=== PATIENT | female | born 1965 | race African-American/Black ===

== ENCOUNTER 2016-06-24 19:49 | Inpatient (IN) | payer MEDICAID ==
[~2016-06-24] VITALS: Ht 172.7 cm; Wt 110.7 kg
[~2016-06-24 19:49] MED LIST: BACO TOP; CLEOCIN HCL300 MG PO; COLACE100 MG PO; FERROUS SULFAT325 M2 PO; FERROUS SULFATE27 MG PO; HIBICLENS118 ML TOP; LAC PO; LEVAQUIN750 MG PO; LOTENSIN10 MG PO; NOR10T PO; PER5 PO; ULT50 PO; VICODIN1 TA1 PO; VITAMIN B121000 MCG PO; ZOS3PM IV
[2016-06-24 21:24] LABS: BASOPHIL % 0.6 % (0-2)
[2016-06-24 21:27] LABS: PLATELET COUNT 622 x10^3mcL (130-400); RED CELL DISTRIBUTION WIDTH 22.7 % (11.5-14.5)
--- NOTE | 2016-06-24 21:27 | NUR ---
XRAY AT BEDSIDE. ATTEMPTED IV UNSUCCESSFUL
[2016-06-24 21:30] LABS: CALCIUM 8.6 mg/dL (8.5-10.1); CARBON DIOXIDE 25.3 mmol/L (21-32); CHLORIDE SERUM 101 mmol/L (98-107); CREATININE SERUM 0.5 mg/dL (0.6-1.0); GFR1 > 60 mL/min; GLUCOSE SERUM 108 mg/dL (74-106); POTASSIUM SERUM 3.5 mmol/L (3.5-5.1); SODIUM SERUM 136 mmol/L (136-145)
[2016-06-24 21:34] LABS: ALKALINE PHOSPHATASE 164 U/L (46-116); ALT/SGPT 58 U/L (14-59); AST/SGOT 67 U/L (15-37); BILIRUBIN TOTAL 0.51 mg/dL (0.20-1.00)
[2016-06-24 21:36] LABS: ALBUMIN 2.8 g/dL (3.4-5.0); TOTAL PROTEIN, SERUM 9.6 g/dL (6.4-8.2)
[2016-06-24 21:45] LABS: CK-MB 2.8 ng/mL (0-3.6)
--- NOTE | 2016-06-24 21:55 | NUR ---
RECEIVED A 50 YEAR OLD FEMALE IN ROOM 15 [facility] WITH C/O BILATERAL LEG PAIN. PER PASSEMENTERIE WORKER, PT IS HOMELESS AND IS WHEELCHAIR BOUND. PT WAS SEEN [place] [facility] [place] ULCERS A 1WEEK AGO. PT AAOX4, RESPIRATORY EVEN AND UNLABORED. MULTIPLE WOUND ULCERS NOTED TO LOWER EXTREMITIES.
[2016-06-24] MEDS ORDERED: MYCOC TOP (23:00)
[2016-06-24] MEDS ORDERED: PANTOPRAZOLE SO40 M1 PO (23:00)
--- NOTE | 2016-06-24 23:10 | NUR ---
RECEIVED REPORT FROM ER NURSE.
--- NOTE | 2016-06-24 23:11 | NUR ---
REPORT GIVEN TO PEDRO ISRAEL TO ASSUME CARE.
--- NOTE | 2016-06-24 23:38 | NUR ---
PT TRANSPORTED TO [facility] VIA [facility] ON CM BY RIAN RN AND GONZALO EMT. PT IN NAD
[2016-06-25] VITALS (7 sets, daily range): BP systolic 113–142; BP diastolic 65–81
[2016-06-25 00:06] LABS: FREE T4 1.51 ng/dL (0.76-1.46); T4(THYROXINE) 8.1 ug/dL (4.7-13.3)
[2016-06-25 00:15] LABS: CHOLESTEROL/HDL RATIO 1.7
--- NOTE | 2016-06-25 00:40 | NUR ---
REC'D AOX4, SPEECH CLEAR. DENIES VILLALOBOS AND DIZZINES. STATES DRANK ALCOHOL YESTERDAY. PLACED ON SZ PRECAUTIONS. ATTACHED TELE 29. NSR, DENIES CHEST PAIN. NOTED WEAK PEDAL PULSES AND SWELLING TO BLE. ON RA, NO SOB NOTED. NOTED MULTIPLE WOUNDS AND ULCERATIONS TO BLE AND BUTTOCKS AND LEFT TOE SKIN TEAR. DR. TEE IN TO SEE PT. REC'D ORDER TO USE THERAHONEY. PHOTOS DOCUMENTED. APPLY DRESSINGS. PLACED PT ON AIR MATTRESS. IV ON LAC WNL. PLACED ON CONTACT PRECAUTIONS. ORIENTED PT TO ROOM AND SURROUNDINGS. CALL LIGHT WITHIN REACH, PROVIDED REPORT TO PEDRO ISRAEL.
--- NOTE | 2016-06-25 00:45 | NUR ---
MOLINA CATH INSERTED ORDERED. COLLECTED URINE FOR LAB.
[2016-06-25 00:53] LABS: T3 TOTAL 0.91 ng/mL
[2016-06-25 01:19] LABS: microscopic required? NO
[2016-06-25 01:32] LABS: UA SPECIFIC GRAVITY 1.025 (1.005-1.035); urine erythrocyte NEGATIVE (NEGATIVE)
[2016-06-25 01:38] LABS: AMPHETAMINE QUAL UR NONE DETECTED (NEG <=1000)
--- NOTE | 2016-06-25 03:10 | NUR ---
PT IS SLEEPING RIGHT NOW. RESP IS WNL, ON ROOM AIR. NO DISTRESS NOTED. IVF IS INFUSING WELL . WILL CONTINUE TO MONITOR.
[2016-06-25 06:11] LABS: BASOPHIL % 0.3 % (0-2)
[2016-06-25 06:27] LABS: CALCIUM 8.1 mg/dL (8.5-10.1); CARBON DIOXIDE 26.4 mmol/L (21-32); CHLORIDE SERUM 106 mmol/L (98-107); CREATININE SERUM 0.5 mg/dL (0.6-1.0); GFR1 > 60 mL/min; GLUCOSE SERUM 83 mg/dL (74-106); MAGNESIUM 1.3 mg/dL (1.8-2.4); PHOSPHOROUS 4.4 mg/dL (2.5-4.9); POTASSIUM SERUM 3.8 mmol/L (3.5-5.1); SODIUM SERUM 141 mmol/L (136-145)
[2016-06-25 06:30] LABS: ALBUMIN 2.2 g/dL (3.4-5.0)
--- NOTE | 2016-06-25 06:50 | NUR ---
WOUND CULTURE COLLECTED AND WILL SEND DOWN TO LAB.
[2016-06-25 06:54] LABS: PLATELET COUNT 454 x10^3mcL (130-400); RED CELL DISTRIBUTION WIDTH 22.4 % (11.5-14.5)
--- NOTE | 2016-06-25 07:40 | NUR ---
\RECEIEVED Pt. AAOX4. RESPIRATIONS EVEN AND UNLABORED. DENIES PAIN/DISCOMFORT AT THIS TIME, MORPHINE IVP GIVEN BY NIGHT RN. Pt. WITH ELEVATED TEMPERATURE TYLENOL GIVEN BY NIGHT RN. WILL CONTINUE TO MONITOR Pt. TELE 29 RETURNED BY NIGHT RN, Pt. DENIES CHEST PAIN/PRESSURE. SLIGHT SWELLING NOTED TO IV AT LEFT AC. BLE WITH FLAKY SKIN, BILATERAL UPPER THIGH WITH DSG CDI. MOLINA CATHETER PEDRO URINE NOTED. AIR MATTRESS IN PLACE, Pt. ON CONTACT PRECAUTIONS. WILL CONTINUE TO MONITOR. CALL LIGHT IN REACH. BED LOW/LOCKED.
--- NOTE | 2016-06-25 07:40 | NUR ---
GAVE PT TYELONOL 650 MG PO FOR ELEVATED TEMP AT 101.2 AND COOLING MEASURES IN PLACE. PT ALSO C/O PAIN TO HER LEGS AND GAVE PT MORPHINE 2 MG IVP. PT IS ALERT AND VERBALLY RESPONSIVE. RESP IS WNL ON ROOM AIR. NOT IN ANY DISTRESS. WILL ENDORSE TO MORNING NURSE.
--- NOTE | 2016-06-25 07:45 | NUR ---
SLIGHT SWELLING NOTED AT LEFT AC IV. REMOVED WITH CATH INTACT. NEW IV LINE STARTED AT RFA 20 G X1 ATTEMPT, GOOD BLOOD RETURN AND Pt. TOLERATED PROCEDURE WELL, RESUMED NS AT 130 ML/HR.
--- NOTE | 2016-06-25 11:28 | NUR ---
Initial Nutrition Assessment Dx: Venous Stasis Ulcers bilateral Lower Extremities 2/2 Peripheral Vascular Disease; Bilateral Decubitus Ulcers stage on thigh PMHx: B/L chronic venous stasis w/ ulcerative lesions, HTN, alcoholism, PAD PSHx: C section 1991, 1993, Right ankle surgery 2009 Labs: BG 83, Cr 0.5L, Alb 2.2L, AST 67H, ALP 164H, Mg 1.3L, Ammonia 43H, A1C 4.9, WBC 4L, H/H 9.29L Meds: ativan, cephulac, colace, ferrous sulfate, lactinex, magnesium sulfate, morphine, vitamin B-12, zofran Current Diet Order: Cardiac (06/25) PO Intakes: 100% B (06/25) Ht: 172.72cm,68". Wt: 244lbs, 110.73kg. BMI: 37.1 kg/m2 (Obese Class II) IBW: 140lb, 63.6kg. %IBW: 159%. UBW: 257lbs (as per previous RD note on 05/26/16) Age: 50 Y/O F Food Allergies: NKFA Skin: multiple wounds and lacerations to BLE and buttocks, skin tear on L toe. Inder:14 Edema: None noted GI: bowel sounds active. Last BM:1 formed (06/25) Pt admitted w/ Venous Stasis Ulcers bilateral Lower Extremities 2/2 Peripheral Vascular Disease; Bilateral Decubitus Ulcers stage on thigh, seen at bedside w/ no family present, is on contact isolation for h/o MRSA, pt reports eating 100% of breakfast today, denies GI issues, only eats 1-2 meals per day d/t being homeless,is very happy to be in the hospital where she can get food, the RD reviewed w/ pt on heart healthy diet and increased protein needs for pressure injury healing at bedside, educational handouts declined, the pt was moderately receptive and engaged. This pt is well known to the [facility] staff, she has been re-admitted to the hospital several times for impaired skin integrity or cellulitis. Problem with: N: None. V: None. D: none. C: None. Problem with: Chewing: None. Swallowing: None. Current Appetite: Good Recent Weight Change: 13lbs. % Weight Change: 5 (Significant) Vitamin/Supplement Use: none Diet at Home: 1-2 meals, is homeless and eats whenever she gets food Physical Activity: none Education: none Estimated Nutritional Needs Based on IBW 140 lb, 63.6kg Energy: 9027-4252 kcal/day (30-35 kcal/kg for Pressure Injury Healing) Protein: 76-95g/day (1.2-1.5 g/kg for Pressure Injury Healing) Fluid: 9263-7752 ml/day (30-35 ml/kg for Pressure Injury Healing) or per MD Nutrition Diagnosis 1. Increased protein/energy needs related to impaired skin integrity as evidenced by pt w/ multiple wounds and lacerations to BLE and buttocks, skin tear on L toe 2. Poor nutrition QOL related to food insecurity 2/2 being homeless as evidenced by pt's self-report and H+P; 13lbs wt loss in 1 month, and % Weight Change: 5 Intervention 1. Cardiac diet w/ 80g protein. Max encouragement and make food prefernces known. 2. Theragran daily, Vitamin C 500mg BID, Zinc Sulfate 220mg daily for 2-4 weeks for pressure injury healing Monitor/Evaluate Goal: PO intakes to meet >/=75% of estimated needs Monitor: PO intakes/tolerance, labs, skin integrity, GI function, wt F/U in 7 days as LOW risk (07/02)
--- NOTE | 2016-06-25 13:34 | NUR ---
Pt. C/O BLE PAIN 8/10 SCALE, MORHINE IVP GIVEN.
--- NOTE | 2016-06-25 15:30 | NUR ---
Pt. APPEARS ASLEEP. NO SIGNS OF PAIN OR DISCOMFORT POST MORPHINE.
--- NOTE | 2016-06-25 18:08 | NUR ---
Pt. TEMPERATURE 100.7. TYELNOL GIVEN, COOLING MEASURES IN PLACE.
--- NOTE | 2016-06-25 18:15 | NUR ---
Pt. REMAINS AAOX4, RESPIRATIONS EVEN AND UNLABORED. DENIES PAIN/DISCOMFORT AT THIS TIME. NO DISTRESS NOTED. NS AT 130 ML/HR TO IV AT RIGHT FOREARM PATENT AND INTACT. BILATERAL UPPER THIGH AND RIGHT HEEL WITH DSG CDI. AIR MATTRESS IN PLACE. OBSERVED CONTACT PRECAUTIONS. BED LOW/LOCKED. CALL LIGHT IN REACH.
--- NOTE | 2016-06-25 19:50 | NUR ---
RECEIVED REPORT FROM DAY SHIFT RN. PT RESTING IN SEMI BLANK'S POSITION. IV ON RFA, NS INFUSING. MOLINA CATHETER IN PLACE, DRAINING PEDRO COLOR URINE. C/O BLE PAIN, WILL MEDICATE. INSTRUCTED PT TO CALL IF ASSISTANCE IS NEEDED. CALL LIGHT WITHIN REACH.
[2016-06-26 05:53] VITALS: BP 142/84
--- NOTE | 2016-06-26 07:05 | NUR ---
PT SLEPT AT LONG INTERVALS. C/O BLE PAIN X2, MEDICATED WITH MORPHINE. SAFETY MEASURES MAINTAINED. CALL LIGHT WITHIN REACH. ALL NEEDS ATTENDED TO. WILL ENDORSE CARE TO ONCOMING RN.
--- NOTE | 2016-06-26 08:00 | NUR ---
PATIENT DROWSY BUT ARROUSABLE, AOX4, C/O HEADACHE WILL MEDICATE. SZ/ETOH PREC. NO TELE, DENIES CP. LUNGS DIM, PATIENT STATES FEELING CONGESTED, O2 SAT 96% ON RA, BREATHING EVEN AND UNLABORED AT THIS TIME. PERIPHERAL PULSES PALPABLE, EDEMA TO BLE'S. BOWEL SOUNDS ACTIVE, STATES LAST BM YESTERDAY, DENIES N/V. MOLINA IN PLACE, DRAINING PEDRO URINE TO GRAVITY. AIR MATTRESS IN PLACE, DENIES NUMBNESS/TINGLING. MULTIPLE WOUNDS TO BLE'S, BILAT THIGHS, DRESSING TO RT HEEL CDI. WILL CHANGE DRESSING TODAY. IV ACCESS TO RFA RUNNING NS AT 130ML/HR INFUSING WELL SITE WNL. CALL LIGHT WITHIN REACH.
[2016-06-26 08:21] VITALS: BP 140/81
--- NOTE | 2016-06-26 09:30 | NUR ---
ULTRAM GIVEN FOR HEADACHE PAIN 11/11. WILL CONT TO MONITOR.
--- NOTE | 2016-06-26 09:45 | NUR ---
DR GOODMAN MADE AWARE OF PTT 36.5 AND PLT 454. PER CHRISSY COUCH TO GIVE HEP SQ.
--- NOTE | 2016-06-26 12:42 | NUR ---
DRESSINGS APPLIED/CHANGED WITH THERAHONEY GEL, ADAPTIC, AND DRY ISLAND DRESSINGS TO OPEN WOUNDS: LEFT FOOT 2ND DIGIT, RT FOOT X2, LLE/RLE, BILAT POSTERIOR THIGHS, RT SIDE TORSO, AND RUE. OPTIFOAM DRESSINGS TO BUTTOCKS INTACT. WOUNDS WITH SOME PINK/BROWN DRAINAGE. SILVER FABRIC WITH ANTIFUNGAL CREAM APPLIED TO ABDOMINAL AND BREAST FOLDS. PATIENT WAS CLEANSED, PREMEDICATED WITH MORPHINE. TOLERATED LINEN/GOWN CHANGE AND DRESSING APPLICATION WELL.
--- NOTE | 2016-06-26 16:55 | NUR ---
DR HERNÁNDEZ TO PERFORM DEBRIDEMENT TO FEET/LEGS, CONSENT SIGNED. PATIENT PREMEDICATED WITH PERCOCET.
[2016-06-26 17:31] VITALS: BP 131/86
--- NOTE | 2016-06-26 17:45 | NUR ---
ASSISTED DR HERNÁNDEZ WITH APPLYING UNNA BOOTS, KERLIX AND AR WRAP TO BILAT FEET. PATIENT TOLERATED WELL.
--- NOTE | 2016-06-26 18:35 | NUR ---
PATIENT HAD BM, SOFT/LOOSE STOOL BROWN, PASSING ALOT OF GAS. SHEILA AREA CLEANSED BY AUTOMATIC TELLER MACHINE SERVICER'S. DRESSING CHANGED TO RT POSTERIOR UPPER THIGH WOUND. OTHER DRESSINGS CDI. PATIENT TOLERATED DINNER MEAL WELL. MOLINA IN PLACE, DRAINING PEDRO URINE. IV INFUSING WELL SITE WNL. CALL LIGHT WITHIN REACH.
--- NOTE | 2016-06-26 19:30 | NUR ---
RECEIVED REPORT FROM DAY SHIFT RN. PT RESTING IN BED. NO C/O PAIN AT THIS TIME. AIR MATTRESS IN PLACE. EDEMA ON BLE NOTED. MULTIPLE WOUNDS ON BLE, STEVO. DRESSING TO APRIL THIGHS AND R HEEL CDI. MOLINA CATHETER IN PLACE DRAINING PEDRO URINE TO GRAVITY. CALL LIGHT WITHIN REACH.
--- NOTE | 2016-06-26 20:00 | NUR ---
RECEIVED REPORT FROM DAY SHIFT RN. PT SITTING UP EATING DINNER. NO C/O PAIN AT THIS TIME. IV ON RFA, NS INFUSING. AIR MATTRESS IN PLACE. UNNA BOOT, KERLIX AND AR BANDAGES ON BLE, CDI. MOLINA CATHETER IN PLACE DRAINING PEDRO URINE TO GRAVITY. CALL LIGHT WITHIN REACH.
[2016-06-26 21:30] VITALS: BP 147/88
[2016-06-27 06:37] LABS: BASOPHIL % 0.6 % (0-2)
[2016-06-27 06:44] LABS: CALCIUM 8.2 mg/dL (8.5-10.1); CARBON DIOXIDE 27.1 mmol/L (21-32); CHLORIDE SERUM 103 mmol/L (98-107); CREATININE SERUM 0.5 mg/dL (0.6-1.0); GFR1 > 60 mL/min; GLUCOSE SERUM 68 mg/dL (74-106); MAGNESIUM 1.3 mg/dL (1.8-2.4); PHOSPHOROUS 4.8 mg/dL (2.5-4.9); POTASSIUM SERUM 3.8 mmol/L (3.5-5.1); SODIUM SERUM 137 mmol/L (136-145)
--- NOTE | 2016-06-27 06:58 | NUR ---
PT SLEPT AT LONG INTERVALS. C/O BLE PAIN X2, MEDICATED WITH MORPHINE. DRESSINGS ON BLE AND POSTERIOR THIGHS CDI. SAFETY MEASURES MAINTAINED. CALL LIGHT WITHIN REACH. WILL ENDORSE CARE TO ONCOMING RN.
[2016-06-27 07:12] LABS: PLATELET COUNT 460 x10^3mcL (130-400); RED CELL DISTRIBUTION WIDTH 21.7 % (11.5-14.5)
--- NOTE | 2016-06-27 07:38 | NUR ---
RECEIVED PATIENT AAOX4, ABLE TO COMMUNICATE AND FOLLOW COMMANDS, NO DISTRESS NOTE, AND DENIES CHEST PAIN. PALPABLE PULSES TO BUE/BLE. ON ROOM AIR, DENIES SOB, AND RESPIRATIONS EVEN AND UNLABORED. DENIES N/V. VOIDS FREELY WITH F/C IN FLOWING PEDRO COLORED URINE BY GRAVITY. ON AIR MATTRESS GENERALIZED WEAKNESS NOTED. DENIES PAIN. IV TO RFA CDI. CALL LIGHT AND BELONGINGS WITHIN REACH, SEIZURE PRECAUTIONS/ASPIRATION PRECAUTIONS IN PLACE, FALL PRECAUTIONS IN PLACE, AND WILL CONTINUE TO MONITOR.
--- NOTE | 2016-06-27 08:30 | NUR ---
ROUNDS MADE BY , RESIDENTS, AND MEDICAL STAFF AT BEDSIDE, PATIENT WILL CONTINUE IV ANTIBIOTICS, PATIENT STATED "CAN I CONTINUE MY PAIN MEDICATIONS" SAID YES, ALL QUESTIONS AND CONCERNS ADDRESSED, CALL LIGHT AND BELONGINGS WITHIN REACH, AND WILL CONTINUE TO MONITOR.
[2016-06-27 09:05] VITALS: BP 137/86
--- NOTE | 2016-06-27 09:15 | NUR ---
PATIENT C/O ACHING PAIN TO BLE, MORPHINE SULFATE 2MG IVP Q3H PRN GIVEN FOR PAIN, NO DISTRESS NOTED, RESPIRAITONS EVEN AND UNLABORED, CALL LIGHT AND BELONGINGS WITHIN REACH, ASPIRATION PRECAUTIONS IN PLACE, SEIZURE PRECAUTIONS IN PLACE, AND WILL CONTINUE TO MONITOR.
--- NOTE | 2016-06-27 11:15 | NUR ---
MADE AWARE OF PATIENT C/O GAS PAIN, SAID HE WILL ORDER MEDICATION AWAITING ORDERS AND WILL CONTINUE TO MONITOR.
--- NOTE | 2016-06-27 12:24 | NUR ---
PATIENT SITTING UP IN BED WATCHING TV C/O ACHING PAIN 10/10 TO BLE, MORPHINE SULFATE 2MG IVP Q3H PRN GIVEN FOR PAIN, NO DISTRESS NOTED, RESPIRAITONS EVEN AND UNLABORED, CALL LIGHT AND BELONGINGS WITHIN REACH, ASPIRATION PRECAUTIONS IN PLACE, SEIZURE PRECAUTIONS IN PLACE, AND WILL CONTINUE TO MONITOR.
--- NOTE | 2016-06-27 12:24 | NUR ---
PATIENT SITTING UP IN BED WATCHING IV C/O ACHING PAIN 10/10 TO BLE, MORPHINE SULFATE 2MG IVP Q3H PRN GIVEN FOR PAIN, NO DISTRESS NOTED, RESPIRAITONS EVEN AND UNLABORED, CALL LIGHT AND BELONGINGS WITHIN REACH, ASPIRATION PRECAUTIONS IN PLACE, SEIZURE PRECAUTIONS IN PLACE, AND WILL CONTINUE TO MONITOR.
[2016-06-27 12:31] VITALS: BP 151/92
--- NOTE | 2016-06-27 14:49 | NUR ---
PATIENT SITTING UP IN BED WITH EYES CLOSED EASILY AROUSABEL, NO DISTRESS NOTED, RESPIRATIONS EVEN AND UNLAOBRED, ASPIRATION PRECAUTIONS IN PLACE, SEIZURE PRECAUTIONS IN PLACE, FALL PRECAUTIONS IN PLACE, CALL LIGHT AND BELONGINGS WITHIN REACH, AND WILL CONTINUE TO MONTIOR.
[2016-06-27 15:42] VITALS: BP 153/92
--- NOTE | 2016-06-27 16:14 | NUR ---
PATIENT SITTING UP IN BED WATCHING C/O ACHING PAIN 12/12 TO BLE, MORPHINE SULFATE 2MG IVP Q3H PRN GIVEN FOR PAIN, NO DISTRESS NOTED, RESPIRAITONS EVEN AND UNLABORED, CALL LIGHT AND BELONGINGS WITHIN REACH, ASPIRATION PRECAUTIONS IN PLACE, SEIZURE PRECAUTIONS IN PLACE, AND WILL CONTINUE TO MONITOR.
--- NOTE | 2016-06-27 16:24 | NUR ---
PATIENT SITTING UP IN BED C/O ACHING PAIN 12/12 TO BLE, MORPHINE SULFATE 2MG IVP Q3H PRN GIVEN FOR PAIN, NO DISTRESS NOTED, RESPIRAITONS EVEN AND UNLABORED, CALL LIGHT AND BELONGINGS WITHIN REACH, ASPIRATION PRECAUTIONS IN PLACE, SEIZURE PRECAUTIONS IN PLACE, AND WILL CONTINUE TO MONITOR.
--- NOTE | 2016-06-27 18:49 | NUR ---
PATIENT SITTING UP IN BED AAOX4, WATCHING TV, NO DISTRESS NOTED, RESPIRAITONS EVEN AND UNLABORED, DRESSING TO BLE AND UPPER THIGHS CDI, MOLINA CATHEDER IN PLACE FLOWING YELLOW COLORED URINE FREELY BY GRAVITY, IV TO RFA CDI AND NO SIGNS OF INFILTRATION, CALL LIGHT WITHIN REACH, FALL PRECAUTIONS IN PLACE, ASPIRATION PRECAUTIONS IN PLACE, SEIZURE PRECAUTIONS IN PLACE, AND WILL ENDORSE TO NIGHT NURSE.
[2016-06-27 19:30] VITALS: BP 144/89
--- NOTE | 2016-06-27 19:30 | NUR ---
PT ALERT AND AWAKE. AOX4. VERBAL WITH CLEAR SPEECH. NO S/S OF RESPIRATORY DISTRESS NOTED. LUNGS DIMINISHED. DENIES ANY CHEST PAIN. ABD SOFT AND ROUND. BOWEL SOUNDS ACTIVE. NOTED 1-2+ EDEMA TO BLE. DRESSINGS TO THIGHS AND AR WRAP TO BLE DRY AND INTACT. PULSES PALPABLE. PT C/O 8/10 PAIN TO BLE. PRN MORPHINE 2 MG IVP GIVEN. F/C DRAINING CLEAR YELLOW URINE. SIDE RAILS UP. CALL LIGHT WITHIN REACH. WILL CONTINUE TO MONITOR.
[2016-06-27 22:30] VITALS: BP 150/88
--- NOTE | 2016-06-28 00:35 | NUR ---
PT RESTING WITH RELAXED FACIAL FEATURES. EASILY AROUSED WHEN NAME CALLED. PT REFUSED LACTULOSE 30 ML PO. IV PATENT AND INTACT. IV INFUSING WELL. NO S/S OF INFECTION NOTED. BREATHING EQUAL AND UNLABORED. CALL LIGHT WITHIN REACH. WILL CONTINUE TO MONITOR.
--- NOTE | 2016-06-28 05:00 | NUR ---
PT ALERT AND AWAKE. DRESSINGS TO BILATERAL THIGHS CHANGED. NOTED WITH SMALL TO MODERATE AMOUNT SEROSANGUINOUS DRAINAGE WITH FOUL ODOR. TOLERATED WELL. IV INFUSING WELL. NO S/S OF INFECTION NOTED. REPOSITIONED PT FOR COMFORT. GOOD CARE RENDERED. CALL LIGHT WITHIN REACH. WILL CONTINUE TO MONITOR.
[2016-06-28 06:30] VITALS: BP 151/99
[2016-06-28 06:37] LABS: BASOPHIL % 0.6 % (0-2)
[2016-06-28 06:55] LABS: CALCIUM 8.4 mg/dL (8.5-10.1); CARBON DIOXIDE 26.4 mmol/L (21-32); CHLORIDE SERUM 103 mmol/L (98-107); CREATININE SERUM 0.5 mg/dL (0.6-1.0); GFR1 > 60 mL/min; GLUCOSE SERUM 75 mg/dL (74-106); MAGNESIUM 1.3 mg/dL (1.8-2.4); PHOSPHOROUS 4.4 mg/dL (2.5-4.9); POTASSIUM SERUM 3.6 mmol/L (3.5-5.1); SODIUM SERUM 138 mmol/L (136-145)
[2016-06-28 06:58] LABS: RED CELL DISTRIBUTION WIDTH 21.7 % (11.5-14.5)
[2016-06-28 06:59] LABS: PLATELET COUNT 508 x10^3mcL (130-400); rbc morphology (normal/abnorm) ABNORMAL (NORMAL)
--- NOTE | 2016-06-28 07:42 | NUR ---
PT RESTING IN BED WITH EYES CLOSED. NO S/S OF DISTRESS NOTED. IV INFUSING WELL. BREATHING EQUAL AND UNLABORED. RESTING COMFORTABLY WITH RELAXED FACIAL FEATURES. CALL LIGHT WITHIN REACH. ENDORSED TO DAY NURSE - ROBBIN.
--- NOTE | 2016-06-28 08:15 | NUR ---
PATIENT AOX4, SZ PREC/ETOH PROTOCOL. DENIES CP. NO RESP DISTRESS NOTED ON RA AT THIS TIME, BREATHING EVEN AND UNLABORED. PERIPHERAL PULSES PALPABLE. AR WRAP TO BLE'S CDI S/P DEBRIDEMENT 06/26. TOES MOBILE, DENIES NUMBNESS/TINGLING. C/O PAIN TO BLE WILL MEDICATE PER EMAR. BOWEL SOUNDS ACTIVE, STATES LAST BM LAST NIGHT LOOSE AND PASSING GAS. FOELY IN PLACE DRAINING PEDRO URINE TO GRAVITY. MULTIPLE SCATTERED WOUNDS TO BLE/THIGHS, RT ARM AND RT SIDE ABD, DRESSINGS INTACT. IV ACCESS TO RFA RUNNING NS AT 130ML/HR INFUSING WELL SITE WNL CALL LIGHT WITHIN REACH.
--- NOTE | 2016-06-28 10:05 | NUR ---
PATIENT HAD BM, LIGHT BROWN SOFT STOOL. CLEANSED AND GOWN CHANGED, ZGAURD APPLIED TO BUTTOCKS. DRESSINGS TO THIGH WOUND SITES INTACT. PATIENT TOLERATED WELL.
[2016-06-28 16:01] VITALS: BP 151/99
[2016-06-28] MEDS ORDERED: PERCOCET1 TA5 PO (16:53)
[2016-06-28] MEDS ORDERED: BENADRYL ALLERG25 M1 PO (16:53)
[2016-06-28] MEDS ORDERED: LORAZEPAM1 MG PO (16:54)
[2016-06-28] MEDS ORDERED: CLEOCIN HCL300 MG PO (16:55)
[2016-06-28] MEDS ORDERED: LAC PO (16:56)
== END 2016-06-28 17:21 | disposition home or self-care (01) | DRG 383 ==
LOC: ED 19:49 → MU 22:13 → DU 22:13 → MU 06-25 05:27
PROVIDERS: Emergency Medicine; Family Medicine; ADMIT Family Medicine
PROC: 0JBN0ZZ Excision of Right Lower Leg Subcutaneous Tissue and Fascia, Open Approach (ICD-10-PCS; principal; 2016-06-26)
PROC: 0JBR0ZZ Excision of Left Foot Subcutaneous Tissue and Fascia, Open Approach (ICD-10-PCS; 2016-06-26)
PROC: 0JBQ0ZZ Excision of Right Foot Subcutaneous Tissue and Fascia, Open Approach (ICD-10-PCS; 2016-06-26)
PROC: 0JBP0ZZ Excision of Left Lower Leg Subcutaneous Tissue and Fascia, Open Approach (ICD-10-PCS; 2016-06-26)
DX: L03.116 Cellulitis of left lower limb (principal); E43 Unspecified severe protein-calorie malnutrition; G93.41 Metabolic encephalopathy; L03.115 Cellulitis of right lower limb; I10 Essential (primary) hypertension; F10.10 Alcohol abuse, uncomplicated; E83.42 Hypomagnesemia; I87.8 Other specified disorders of veins; E66.01 Morbid (severe) obesity due to excess calories; Z59.0 Homelessness; Z99.3 Dependence on wheelchair; Z68.35 Body mass index [BMI] 35.0-35.9, adult; L89.899 Pressure ulcer of other site, unspecified stage; L97.321 Non-pressure chronic ulcer of left ankle limited to breakdown of skin; L97.521 Non-pressure chronic ulcer of other part of left foot limited to breakdown of skin
CPT/HCPCS: 80307; 83880; 84439; G0480; J0696; J1644; J2270; J2405; J3010; J3475; J3490; J7030; Q0092

== ENCOUNTER 2016-10-23 22:16 | Inpatient (IN) | payer MEDICAID ==
[~2016-10-23] VITALS: Ht 172.7 cm; Wt 117.9 kg
[~2016-10-23 22:16] MED LIST changes: +BENADRYL ALLERG25 M1 PO; +LORAZEPAM1 MG PO; +MYCOC TOP; +PANTOPRAZOLE SO40 M1 PO; +PERCOCET1 TA5 PO
[2016-10-24 00:11] LABS: CALCIUM 7.8 mg/dL (8.5-10.1); CARBON DIOXIDE 25.1 mmol/L (21-32); CHLORIDE SERUM 103 mmol/L (98-107); CREATININE SERUM 0.6 mg/dL (0.6-1.0); GFR1 > 60 mL/min; GLUCOSE SERUM 90 mg/dL (74-106); POTASSIUM SERUM 3.3 mmol/L (3.5-5.1); SODIUM SERUM 139 mmol/L (136-145)
[2016-10-24 00:27] LABS: ALKALINE PHOSPHATASE 181 U/L (46-116); ALT/SGPT 25 U/L (14-59); AST/SGOT 78 U/L (15-37); BILIRUBIN TOTAL 0.5 mg/dL (0.20-1.00); LIPASE 87 IU/L (73-393)
[2016-10-24 00:33] LABS: ALBUMIN 1.9 g/dL (3.4-5.0); AMYLASE 176 U/L (25-115); TOTAL PROTEIN, SERUM 8.6 g/dL (6.4-8.2)
[2016-10-24 00:45] LABS: BASOPHIL % 0.5 % (0-2); PLATELET COUNT 252 x10^3mcL (130-400)
[2016-10-24 00:49] LABS: RED CELL DISTRIBUTION WIDTH 24.9 % (11.5-14.5)
[2016-10-24 01:34] LABS: rbc morphology (normal/abnorm) ABNORMAL (NORMAL); tear drop cell (dacryocyte) 1+
[2016-10-24 03:47] LABS: UA SPECIFIC GRAVITY 1.025 (1.005-1.035); microscopic required? YES; urine erythrocyte TRACE (NEGATIVE)
[2016-10-24 04:23] LABS: MAGNESIUM 1.5 mg/dL (1.8-2.4); PHOSPHOROUS 2.6 mg/dL (2.5-4.9)
[2016-10-24 04:24] LABS: CHOLESTEROL/HDL RATIO 1.5
[2016-10-24 04:30] LABS: FREE T4 1.38 ng/dL (0.76-1.46); T4(THYROXINE) 5.3 ug/dL (4.7-13.3)
[2016-10-24 04:31] LABS: AMPHETAMINE QUAL UR NONE DETECTED (NEG <=1000)
[2016-10-24 04:59] LABS: T3 TOTAL 0.79 ng/mL
[2016-10-24 08:21] LABS: TOTAL IRON BINDING CAPACITY 248 ug/dL (250-450)
[2016-10-24 08:42] LABS: IRON 34 ug/dL (50-170)
[2016-10-24 08:47] VITALS: BP 158/101
[2016-10-24 12:00] VITALS: BP 159/96
[2016-10-24 14:34] LABS: RED BLOOD CELLS 3.29 M/mm3 (4.10-5.10)
[2016-10-24 18:26] VITALS: BP 150/101
[2016-10-24 22:43] VITALS: BP 144/103
[2016-10-25 05:36] VITALS: BP 136/93
[2016-10-25 06:40] LABS: BASOPHIL % 0.4 % (0-2); PLATELET COUNT 155 x10^3mcL (130-400)
[2016-10-25 06:55] LABS: MAGNESIUM 1.5 mg/dL (1.8-2.4); PHOSPHOROUS 3.4 mg/dL (2.5-4.9)
[2016-10-25 07:02] LABS: ALBUMIN 1.7 g/dL (3.4-5.0); ALKALINE PHOSPHATASE 159 U/L (46-116); ALT/SGPT 17 U/L (14-59); AST/SGOT 47 U/L (15-37); BILIRUBIN TOTAL 0.82 mg/dL (0.20-1.00); CALCIUM 7.6 mg/dL (8.5-10.1); CARBON DIOXIDE 26.6 mmol/L (21-32); CHLORIDE SERUM 105 mmol/L (98-107); CREATININE SERUM 0.6 mg/dL (0.6-1.0); GFR1 > 60 mL/min; GLUCOSE SERUM 65 mg/dL (74-106); POTASSIUM SERUM 3.9 mmol/L (3.5-5.1); SODIUM SERUM 140 mmol/L (136-145); TOTAL PROTEIN, SERUM 7.7 g/dL (6.4-8.2)
[2016-10-25 07:27] LABS: RED CELL DISTRIBUTION WIDTH 24.5 % (11.5-14.5); rbc morphology (normal/abnorm) ABNORMAL (NORMAL); tear drop cell (dacryocyte) 1+
[2016-10-25 09:44] VITALS: BP 114/66
[2016-10-25 13:32] VITALS: BP 139/100
[2016-10-25 17:14] VITALS: BP 165/108
[2016-10-25 21:43] VITALS: BP 151/99
[2016-10-26 06:28] LABS: BASOPHIL % 0.4 % (0-2); PLATELET COUNT 176 x10^3mcL (130-400)
[2016-10-26 06:29] LABS: CALCIUM 7.6 mg/dL (8.5-10.1); CARBON DIOXIDE 25.6 mmol/L (21-32); CHLORIDE SERUM 105 mmol/L (98-107); CREATININE SERUM 0.7 mg/dL (0.6-1.0); GFR1 > 60 mL/min; GLUCOSE SERUM 72 mg/dL (74-106); MAGNESIUM 1.6 mg/dL (1.8-2.4); PHOSPHOROUS 3.7 mg/dL (2.5-4.9); POTASSIUM SERUM 3.8 mmol/L (3.5-5.1); SODIUM SERUM 138 mmol/L (136-145)
[2016-10-26 06:55] VITALS: BP 123/89
[2016-10-26 07:54] LABS: RED CELL DISTRIBUTION WIDTH 24.5 % (11.5-14.5)
[2016-10-26 09:27] VITALS: BP 148/100
[2016-10-26 13:49] VITALS: BP 138/97
[2016-10-26 17:09] VITALS: BP 164/109
[2016-10-26 21:12] VITALS: BP 133/98
[2016-10-27 05:49] VITALS: BP 141/95
[2016-10-27 06:28] LABS: CALCIUM 7.6 mg/dL (8.5-10.1); CARBON DIOXIDE 25.5 mmol/L (21-32); CHLORIDE SERUM 106 mmol/L (98-107); CREATININE SERUM 0.6 mg/dL (0.6-1.0); GFR1 > 60 mL/min; GLUCOSE SERUM 85 mg/dL (74-106); MAGNESIUM 1.5 mg/dL (1.8-2.4); PHOSPHOROUS 3.6 mg/dL (2.5-4.9); POTASSIUM SERUM 3.9 mmol/L (3.5-5.1); SODIUM SERUM 138 mmol/L (136-145)
[2016-10-27 06:38] LABS: BASOPHIL % 0.4 % (0-2); PLATELET COUNT 190 x10^3mcL (130-400)
[2016-10-27 07:04] LABS: RED CELL DISTRIBUTION WIDTH 23.9 % (11.5-14.5)
[2016-10-27 07:07] LABS: rbc morphology (normal/abnorm) ABNORMAL (NORMAL)
[2016-10-27 07:08] LABS: tear drop cell (dacryocyte) 1+
[2016-10-27 09:44] VITALS: BP 139/88
[2016-10-27 14:40] VITALS: BP 154/110
[2016-10-27 17:59] VITALS: BP 183/122
[2016-10-27 18:09] LABS: BASOPHIL % 0.3 % (0-2); PLATELET COUNT 174 x10^3mcL (130-400)
[2016-10-27 18:14] LABS: RED CELL DISTRIBUTION WIDTH 24.3 % (11.5-14.5)
[2016-10-27 19:04] VITALS: BP 143/94
[2016-10-27 21:59] VITALS: BP 158/107
[2016-10-28 06:15] LABS: CALCIUM 7.6 mg/dL (8.5-10.1); CHLORIDE SERUM 106 mmol/L (98-107); CREATININE SERUM 0.7 mg/dL (0.6-1.0); GFR1 > 60 mL/min; GLUCOSE SERUM 76 mg/dL (74-106); MAGNESIUM 1.4 mg/dL (1.8-2.4); PHOSPHOROUS 3.7 mg/dL (2.5-4.9); POTASSIUM SERUM 3.7 mmol/L (3.5-5.1); SODIUM SERUM 137 mmol/L (136-145)
[2016-10-28 06:20] LABS: BASOPHIL % 0.4 % (0-2); PLATELET COUNT 167 x10^3mcL (130-400)
[2016-10-28 06:46] LABS: RED CELL DISTRIBUTION WIDTH 24.3 % (11.5-14.5)
[2016-10-28 06:50] VITALS: BP 159/99
[2016-10-28 07:48] LABS: rbc morphology (normal/abnorm) ABNORMAL (NORMAL)
[2016-10-28 07:49] LABS: ovalocyte/elliptocyte 1+; target cell (codocyte) 1+
[2016-10-28] MEDS ORDERED: NOR5 PO (08:48)
[2016-10-28] MEDS ORDERED: APAP/HYDROCODON1 T13 PO (08:49)
[2016-10-28] MEDS ORDERED: LAC30L PO (08:52)
[2016-10-28] MEDS ORDERED: LEVAQUIN750 MG PO (08:53)
[2016-10-28] MEDS ORDERED: CLEOCIN HCL300 MG PO (08:53)
[2016-10-28] MEDS ORDERED: LAC PO (08:54)
[2016-10-28 09:14] VITALS: BP 164/110
[2016-10-28 15:12] VITALS: BP 139/98
== END 2016-10-28 17:32 | disposition home or self-care (01) | DRG 720 ==
LOC: ED 22:16 → DU 10-24 02:10
PROVIDERS: Emergency Medicine; Family Medicine; ADMIT Family Medicine
PROC: 0JBL0ZZ Excision of Right Upper Leg Subcutaneous Tissue and Fascia, Open Approach (ICD-10-PCS; principal; 2016-10-26)
DX: A41.9 Sepsis, unspecified organism (principal); J69.0 Pneumonitis due to inhalation of food and vomit; E43 Unspecified severe protein-calorie malnutrition; K74.60 Unspecified cirrhosis of liver; L89.213 Pressure ulcer of right hip, stage 3; L03.115 Cellulitis of right lower limb; K80.00 Calculus of gallbladder with acute cholecystitis without obstruction; L03.116 Cellulitis of left lower limb; E83.42 Hypomagnesemia; R65.20 Severe sepsis without septic shock; E87.6 Hypokalemia; I10 Essential (primary) hypertension; I87.8 Other specified disorders of veins; K57.30 Diverticulosis of large intestine without perforation or abscess without bleeding; D64.9 Anemia, unspecified; E66.01 Morbid (severe) obesity due to excess calories; Z59.0 Homelessness; Z99.3 Dependence on wheelchair; Z68.39 Body mass index [BMI] 39.0-39.9, adult
CPT/HCPCS: 83880; 84439; J1200; J1644; J2001; J2270; J2405; J2543; J2916; J3010; J3475; J3490; J7030; J7050; Q0092; Q0163

== ENCOUNTER 2016-12-08 21:16 | Inpatient (IN) | payer MEDICAID ==
[~2016-12-08] VITALS: Ht 172.7 cm; Wt 117.0 kg
[~2016-12-08 21:16] MED LIST changes: +APAP/HYDROCODON1 T13 PO; +LAC30L PO; +NOR5 PO
[2016-12-08 23:32] LABS: BASOPHIL % 0.2 % (0-2); PLATELET COUNT 217 x10^3mcL (130-400)
[2016-12-08 23:42] LABS: CALCIUM 7.9 mg/dL (8.5-10.1); CHLORIDE SERUM 99 mmol/L (98-107); CREATININE SERUM 0.5 mg/dL (0.6-1.0); GFR1 > 60 mL/min; GLUCOSE SERUM 78 mg/dL (74-106); POTASSIUM SERUM 3.2 mmol/L (3.5-5.1); SODIUM SERUM 134 mmol/L (136-145)
[2016-12-08 23:56] LABS: ALBUMIN 2.4 g/dL (3.4-5.0); ALKALINE PHOSPHATASE 191 U/L (46-116); ALT/SGPT 27 U/L (14-59); AST/SGOT 73 U/L (15-37); BILIRUBIN TOTAL 0.6 mg/dL (0.20-1.00); TOTAL PROTEIN, SERUM 9.4 g/dL (6.4-8.2)
[2016-12-09] VITALS (10 sets, daily range): BP systolic 135–159; BP diastolic 76–100
[2016-12-09 01:41] LABS: MAGNESIUM 1.4 mg/dL (1.8-2.4); PHOSPHOROUS 3.7 mg/dL (2.5-4.9); T3 TOTAL 0.61 ng/mL
[2016-12-09 01:49] LABS: FREE T4 1.33 ng/dL (0.76-1.46); FREE THYROXINE INDEX 2.7 ug/dL (1.4-4.5); T4(THYROXINE) 6.7 ug/dL (4.7-13.3)
[2016-12-10 04:00] VITALS: BP 142/86
[2016-12-10 04:55] VITALS: BP 144/98
[2016-12-10 07:30] LABS: BASOPHIL % 0.4 % (0-2); PLATELET COUNT 143 x10^3mcL (130-400)
[2016-12-10 07:38] LABS: RED CELL DISTRIBUTION WIDTH 24.4 % (11.5-14.5)
[2016-12-10 07:40] LABS: rbc morphology (normal/abnorm) ABNORMAL (NORMAL)
[2016-12-10 07:43] LABS: CALCIUM 7.6 mg/dL (8.5-10.1); CARBON DIOXIDE 28.9 mmol/L (21-32); CHLORIDE SERUM 103 mmol/L (98-107); CREATININE SERUM 0.6 mg/dL (0.6-1.0); GFR1 > 60 mL/min; GLUCOSE SERUM 89 mg/dL (74-106); MAGNESIUM 1.5 mg/dL (1.8-2.4); POTASSIUM SERUM 3.4 mmol/L (3.5-5.1); SODIUM SERUM 137 mmol/L (136-145)
[2016-12-10 09:19] VITALS: BP 151/104
[2016-12-10 11:48] VITALS: Ht 172.7 cm; Wt 117.0 kg
[2016-12-10 13:34] VITALS: BP 155/110
[2016-12-10 17:13] VITALS: BP 106/86
[2016-12-10 21:06] VITALS: BP 115/95
[2016-12-11 06:04] VITALS: BP 144/80
[2016-12-11 06:56] LABS: BASOPHIL % 0.5 % (0-2)
[2016-12-11 07:26] LABS: CALCIUM 6.9 mg/dL (8.5-10.1); CARBON DIOXIDE 26.1 mmol/L (21-32); CHLORIDE SERUM 91 mmol/L (98-107); CREATININE SERUM 0.8 mg/dL (0.6-1.0); GFR1 > 60 mL/min; GLUCOSE SERUM 127 mg/dL (74-106); MAGNESIUM 1.1 mg/dL (1.8-2.4); SODIUM SERUM 140 mmol/L (136-145)
[2016-12-11 08:00] LABS: RED CELL DISTRIBUTION WIDTH 23.5 % (11.5-14.5)
[2016-12-11 08:37] LABS: PLATELET COUNT 171 x10^3mcL (130-400)
[2016-12-11 08:48] VITALS: BP 117/80
[2016-12-11 12:10] VITALS: BP 132/99
[2016-12-11 16:20] VITALS: BP 131/98
[2016-12-11 21:31] VITALS: BP 139/108
[2016-12-11 21:56] VITALS: BP 139/105
[2016-12-12 05:32] VITALS: BP 137/107
[2016-12-12 05:43] VITALS: BP 137/107
[2016-12-12 05:59] LABS: BASOPHIL % 0.6 % (0-2); PLATELET COUNT 163 x10^3mcL (130-400)
[2016-12-12 06:17] LABS: CARBON DIOXIDE 29.3 mmol/L (21-32); CHLORIDE SERUM 105 mmol/L (98-107); CREATININE SERUM 0.5 mg/dL (0.6-1.0); GFR1 > 60 mL/min; GLUCOSE SERUM 81 mg/dL (74-106); POTASSIUM SERUM 4.3 mmol/L (3.5-5.1); SODIUM SERUM 137 mmol/L (136-145)
[2016-12-12 06:42] LABS: RED CELL DISTRIBUTION WIDTH 23.8 % (11.5-14.5)
[2016-12-12 10:47] VITALS: BP 133/95
[2016-12-12] MEDS ORDERED: LOTENSIN40 MG PO (13:25)
[2016-12-12] MEDS ORDERED: LACTULOSE10 GM/152 PO (15:54)
[2016-12-12 22:01] VITALS: BP 113/87
[2016-12-13 09:20] VITALS: BP 131/77
[2016-12-13 15:25] VITALS: BP 147/103
[2016-12-13 17:42] VITALS: BP 135/92
[2016-12-13 21:49] VITALS: BP 134/91
[2016-12-14 06:14] VITALS: BP 154/96
[2016-12-14 09:11] VITALS: BP 128/84
[2016-12-14 15:55] VITALS: BP 142/103
[2016-12-14 21:55] VITALS: BP 124/95
[2016-12-15 09:28] VITALS: BP 142/94
[2016-12-15 16:31] VITALS: BP 117/85
[2016-12-15 21:13] VITALS: BP 115/82
[2016-12-16 05:35] VITALS: BP 143/96
[2016-12-16 08:33] VITALS: BP 137/98
[2016-12-16 14:15] VITALS: BP 134/96
[2016-12-16 16:41] VITALS: BP 136/95
[2016-12-16 21:04] VITALS: BP 140/97
[2016-12-17 05:51] VITALS: BP 132/95
[2016-12-17 08:58] VITALS: BP 144/100
[2016-12-17 17:01] VITALS: BP 118/74
[2016-12-17 20:45] VITALS: BP 133/98
[2016-12-18 05:30] VITALS: BP 137/99
[2016-12-18 08:49] LABS: BASOPHIL % 0.6 % (0-2); PLATELET COUNT 185 x10^3mcL (130-400)
[2016-12-18 08:50] LABS: RED CELL DISTRIBUTION WIDTH 26.9 % (11.5-14.5)
[2016-12-18 08:54] VITALS: BP 121/92
[2016-12-18 16:35] VITALS: BP 135/91
[2016-12-18 22:31] VITALS: BP 125/82
[2016-12-19 06:15] VITALS: BP 146/62
[2016-12-19 06:45] LABS: CALCIUM 8.5 mg/dL (8.5-10.1); CARBON DIOXIDE 27.2 mmol/L (21-32); CHLORIDE SERUM 105 mmol/L (98-107); CREATININE SERUM 0.6 mg/dL (0.6-1.0); GFR1 > 60 mL/min; GLUCOSE SERUM 80 mg/dL (74-106); POTASSIUM SERUM 3.8 mmol/L (3.5-5.1); SODIUM SERUM 139 mmol/L (136-145)
[2016-12-19 08:33] VITALS: BP 132/93
[2016-12-19 16:58] VITALS: BP 135/85
[2016-12-19 20:50] VITALS: BP 114/76
[2016-12-20 05:33] VITALS: BP 137/92
[2016-12-20 06:14] LABS: BASOPHIL % 0.4 % (0-2); PLATELET COUNT 218 x10^3mcL (130-400)
[2016-12-20 06:41] LABS: RED CELL DISTRIBUTION WIDTH 27.1 % (11.5-14.5)
[2016-12-20 10:36] VITALS: BP 129/92
[2016-12-20 17:28] VITALS: BP 122/85
[2016-12-20 21:27] VITALS: BP 128/76
[2016-12-21 05:36] VITALS: BP 142/85
[2016-12-21 09:31] VITALS: BP 146/82
[2016-12-21 20:46] VITALS: BP 120/84
[2016-12-22 06:02] VITALS: BP 143/92
[2016-12-22 09:43] VITALS: BP 141/96
[2016-12-22 12:49] VITALS: BP 141/96
[2016-12-22 13:35] VITALS: BP 141/96
[2016-12-22] MEDS ORDERED: DIPHENHYDRAMINE50 MG PO (13:51)
[2016-12-22] MEDS ORDERED: ZYV600 PO (14:26)
[2016-12-22] MEDS ORDERED: CLEOCIN HCL300 MG PO (14:26)
[2016-12-22] MEDS ORDERED: NOR10T PO (14:27)
== END 2016-12-22 14:50 | disposition home or self-care (01) | DRG 361 ==
LOC: ED 21:16 → DU 23:49 → MU 23:49 → DU 12-09 01:32 → MU 12-14 08:21
PROVIDERS: Emergency Medicine; Family Medicine; ADMIT Family Medicine
PROC: 0HBJXZZ Excision of Left Upper Leg Skin, External Approach (ICD-10-PCS; 2016-12-14)
PROC: 0JB90ZZ Excision of Buttock Subcutaneous Tissue and Fascia, Open Approach (ICD-10-PCS; principal; 2016-12-15)
DX: L03.317 Cellulitis of buttock (principal); J69.0 Pneumonitis due to inhalation of food and vomit; E43 Unspecified severe protein-calorie malnutrition; L89.313 Pressure ulcer of right buttock, stage 3; L89.892 Pressure ulcer of other site, stage 2; B96.20 Unspecified Escherichia coli [E. coli] as the cause of diseases classified elsewhere; B96.1 Klebsiella pneumoniae [K. pneumoniae] as the cause of diseases classified elsewhere; B95.2 Enterococcus as the cause of diseases classified elsewhere; E66.01 Morbid (severe) obesity due to excess calories; E87.1 Hypo-osmolality and hyponatremia; L97.909 Non-pressure chronic ulcer of unspecified part of unspecified lower leg with unspecified severity; E83.42 Hypomagnesemia; I87.8 Other specified disorders of veins; E87.6 Hypokalemia; I10 Essential (primary) hypertension; F33.1 Major depressive disorder, recurrent, moderate; F41.9 Anxiety disorder, unspecified; F10.20 Alcohol dependence, uncomplicated; E66.9 Obesity, unspecified; Z68.39 Body mass index [BMI] 39.0-39.9, adult; Z59.0 Homelessness; Z99.3 Dependence on wheelchair; Z16.24 Resistance to multiple antibiotics
CPT/HCPCS: 83880; 84439; 94150; 97110-GP; 97530-GP; J1170; J1200; J1644; J1885; J1940; J2001; J2185; J2270; J2405; J2543; J3370; J3475; J3480; J7030; J7040; J7050; J7620; J7626; Q0092; Q0163

== ENCOUNTER 2017-02-03 21:34 | Emergency (ER) | payer MEDICAID ==
[~2017-02-03 21:34] MED LIST changes: +DIPHENHYDRAMINE50 MG PO; +LACTULOSE10 GM/152 PO; +LOTENSIN40 MG PO; +ZYV600 PO
[2017-02-03 22:59] LABS: CALCIUM 8.4 mg/dL (8.5-10.1); CHLORIDE SERUM 103 mmol/L (98-107); CREATININE SERUM 0.4 mg/dL (0.6-1.0); GFR1 > 60 mL/min; GLUCOSE SERUM 98 mg/dL (74-106); POTASSIUM SERUM 3.5 mmol/L (3.5-5.1); SODIUM SERUM 142 mmol/L (136-145)
[2017-02-03 23:17] LABS: BASOPHIL % 0.9 % (0-2); PLATELET COUNT 302 x10^3mcL (130-400)
[2017-02-03 23:22] LABS: RED CELL DISTRIBUTION WIDTH 19.4 % (11.5-14.5)
[2017-02-04 10:09] VITALS: BP 120/70
--- NOTE | 2017-02-04 15:24 | NUR ---
SOCIAL SERVICE NOTE: I WAS REQUESTED BY PT TO MEET WITH HER. SHE HAD BEEN IN THE ER LAST AND WAS HELD OVER UNTIL THIS MORNING. SHE IS WELL KNOWN TO ME DUE TO MULTIPLE HOSPITAL VISITS. SHE IS HOMELESS AND OFTEN DOES NOT FOLLOW HER MEDICAL REGIMEN APPROPRIATELY. PT WAS A/O AND COOPERATIVE WITH THE INTERVIEW. SHE REPORTED HER WHEELCHAIR MISSING WHEN SHE WAS BROUGHT TO THE HOSPITAL, AND BECAUSE OF HER HOMELESSNESS, HER BELONGINGS OFTEN ARE NOT BROUGHT WITH HER. WE HAVE REPLACED HER WHEELCHAIR ON MANY OCCASIONS. SHE REQUESTED I HELP HER FIND THE WHEELCHAIR IF POSSIBLE. I CONTACTED [facility]- [facility], [facility] AND [facility], AND ONLY CARE INDICATED THAT THEY WOULD INVESTIGATE AND GET BACK WITH ME. IN THE MEANTIME, I PROVIDED HER A "LOANER" CHAIR TO USE AND WHICH SHE CAN KEEP IF SHE IS UNABLE TO FIND HER CHAIR. I ARRANGED FOR [employer] [facility]EL[facility] TO TRANSPORT HER BACK TO THE [facility] WHERE HER SUPPORT RESOURCES ARE. NO FURTHER INTERVENTION DESIRED OR NEEDED.
== END 2017-02-04 10:09 | disposition home or self-care (01) ==
LOC: ED 21:34
PROVIDERS: Emergency Medicine Emergency Medical Services
DX: F10.129 Alcohol abuse with intoxication, unspecified (principal); F17.210 Nicotine dependence, cigarettes, uncomplicated; I10 Essential (primary) hypertension
CPT/HCPCS: G0480; J3411; J3475; J3490; J7030

== ENCOUNTER 2017-02-18 20:15 | Inpatient (IN) | payer MEDICAID ==
[~2017-02-18] VITALS: Ht 172.7 cm; Wt 112.0 kg
[2017-02-18 22:16] LABS: CALCIUM 8.5 mg/dL (8.5-10.1); CARBON DIOXIDE 30.5 mmol/L (21-32); CHLORIDE SERUM 101 mmol/L (98-107); CREATININE SERUM 0.5 mg/dL (0.6-1.0); GFR1 > 60 mL/min; GLUCOSE SERUM 79 mg/dL (74-106); SODIUM SERUM 136 mmol/L (136-145)
[2017-02-18 22:19] LABS: BASOPHIL % 0.5 % (0-2)
[2017-02-18 22:29] LABS: ALKALINE PHOSPHATASE 162 U/L (46-116); ALT/SGPT 32 U/L (14-59); AST/SGOT 49 U/L (15-37); BILIRUBIN TOTAL 0.5 mg/dL (0.20-1.00); FREE T4 1.37 ng/dL (0.76-1.46)
[2017-02-18 22:30] LABS: ALBUMIN 2.3 g/dL (3.4-5.0); TOTAL PROTEIN, SERUM 8.5 g/dL (6.4-8.2)
[2017-02-18 22:52] LABS: PLATELET COUNT 70 x10^3mcL (130-400); RED CELL DISTRIBUTION WIDTH 17.8 % (11.5-14.5)
[2017-02-18 23:09] LABS: microscopic required? YES; urine erythrocyte 1+ (NEGATIVE)
[2017-02-19 03:29] LABS: T3 TOTAL 0.95 ng/mL
[2017-02-19 03:34] LABS: FREE T4 1.36 ng/dL (0.76-1.46); FREE THYROXINE INDEX 2.6 ug/dL (1.4-4.5); T4(THYROXINE) 7.5 ug/dL (4.7-13.3)
[2017-02-19 04:46] LABS: MAGNESIUM 1.2 mg/dL (1.8-2.4)
[2017-02-19 04:53] LABS: CHOLESTEROL/HDL RATIO 1.6
[2017-02-19 05:27] VITALS: BP 136/93
[2017-02-19 07:54] LABS: BASOPHIL % 0.4 % (0-2)
[2017-02-19 07:59] LABS: PLATELET COUNT 90 x10^3mcL (130-400)
[2017-02-19 08:49] LABS: CHLORIDE SERUM 104 mmol/L (98-107); POTASSIUM SERUM 3.3 mmol/L (3.5-5.1); SODIUM SERUM 138 mmol/L (136-145)
[2017-02-19 09:31] LABS: IRON 24 ug/dL (50-170); TOTAL IRON BINDING CAPACITY 220 ug/dL (250-450)
[2017-02-19 09:52] VITALS: BP 128/85
[2017-02-19 10:00] LABS: CALCIUM 8.3 mg/dL (8.5-10.1); CREATININE SERUM 0.6 mg/dL (0.6-1.0); GFR1 > 60 mL/min; GLUCOSE SERUM 89 mg/dL (74-106)
[2017-02-19 15:24] VITALS: BP 96/69
[2017-02-19 18:00] VITALS: BP 137/89
[2017-02-19 21:42] VITALS: BP 123/93
[2017-02-20 01:45] LABS: AMPHETAMINE QUAL UR NONE DETECTED (NEG <=1000)
[2017-02-20 05:42] VITALS: BP 142/95
[2017-02-20 08:39] LABS: BASOPHIL % 0.4 % (0-2); PLATELET COUNT 142 x10^3mcL (130-400)
[2017-02-20 08:53] LABS: CALCIUM 8.5 mg/dL (8.5-10.1); CARBON DIOXIDE 28.9 mmol/L (21-32); CHLORIDE SERUM 105 mmol/L (98-107); CREATININE SERUM 0.6 mg/dL (0.6-1.0); GFR1 > 60 mL/min; GLUCOSE SERUM 76 mg/dL (74-106); MAGNESIUM 1.5 mg/dL (1.8-2.4); POTASSIUM SERUM 3.9 mmol/L (3.5-5.1); SODIUM SERUM 139 mmol/L (136-145)
[2017-02-20 10:12] VITALS: BP 132/87
[2017-02-20 18:43] VITALS: BP 140/54
[2017-02-20 21:28] VITALS: BP 123/73
[2017-02-21 06:37] LABS: BASOPHIL % 0.3 % (0-2); PLATELET COUNT 219 x10^3mcL (130-400)
[2017-02-21 06:44] LABS: RED CELL DISTRIBUTION WIDTH 18.4 % (11.5-14.5)
[2017-02-21 06:54] LABS: CALCIUM 8.6 mg/dL (8.5-10.1); CARBON DIOXIDE 28.8 mmol/L (21-32); CHLORIDE SERUM 104 mmol/L (98-107); CREATININE SERUM 0.6 mg/dL (0.6-1.0); GFR1 > 60 mL/min; GLUCOSE SERUM 75 mg/dL (74-106); MAGNESIUM 1.8 mg/dL (1.8-2.4); POTASSIUM SERUM 3.7 mmol/L (3.5-5.1); SODIUM SERUM 139 mmol/L (136-145)
[2017-02-21 09:28] VITALS: BP 113/75
[2017-02-21 17:09] VITALS: BP 132/95
[2017-02-21 21:15] VITALS: BP 125/83
[2017-02-22 05:36] VITALS: BP 122/77
[2017-02-22 06:18] LABS: CALCIUM 8.3 mg/dL (8.5-10.1); CHLORIDE SERUM 104 mmol/L (98-107); CREATININE SERUM 0.6 mg/dL (0.6-1.0); GFR1 > 60 mL/min; GLUCOSE SERUM 83 mg/dL (74-106); MAGNESIUM 1.6 mg/dL (1.8-2.4); PHOSPHOROUS 4.7 mg/dL (2.5-4.9); POTASSIUM SERUM 3.8 mmol/L (3.5-5.1); SODIUM SERUM 136 mmol/L (136-145)
[2017-02-22 06:58] LABS: BASOPHIL % 0.6 % (0-2); PLATELET COUNT 277 x10^3mcL (130-400)
[2017-02-22 10:14] VITALS: BP 115/74
[2017-02-22 16:52] VITALS: BP 120/86
[2017-02-22 21:24] VITALS: BP 118/75
[2017-02-23 06:11] LABS: CALCIUM 8.5 mg/dL (8.5-10.1); CARBON DIOXIDE 27.5 mmol/L (21-32); CHLORIDE SERUM 107 mmol/L (98-107); CREATININE SERUM 0.7 mg/dL (0.6-1.0); GFR1 > 60 mL/min; GLUCOSE SERUM 90 mg/dL (74-106); MAGNESIUM 1.9 mg/dL (1.8-2.4); PHOSPHOROUS 4.4 mg/dL (2.5-4.9); POTASSIUM SERUM 3.9 mmol/L (3.5-5.1); SODIUM SERUM 138 mmol/L (136-145)
[2017-02-23 06:16] VITALS: BP 130/88
[2017-02-23 06:45] LABS: BASOPHIL % 1.7 % (0-2); PLATELET COUNT 335 x10^3mcL (130-400); RED CELL DISTRIBUTION WIDTH 18.4 % (11.5-14.5)
[2017-02-23 08:44] VITALS: BP 140/75
[2017-02-23 13:09] VITALS: BP 128/95
[2017-02-23 16:28] VITALS: BP 133/88
[2017-02-23 20:54] VITALS: BP 132/95
[2017-02-24 05:31] VITALS: BP 157/97
[2017-02-24 06:46] LABS: BASOPHIL % 0.4 % (0-2); PLATELET COUNT 364 x10^3mcL (130-400)
[2017-02-24 06:56] LABS: CALCIUM 8.7 mg/dL (8.5-10.1); CARBON DIOXIDE 27.4 mmol/L (21-32); CHLORIDE SERUM 107 mmol/L (98-107); CREATININE SERUM 0.6 mg/dL (0.6-1.0); GFR1 > 60 mL/min; GLUCOSE SERUM 88 mg/dL (74-106); MAGNESIUM 1.6 mg/dL (1.8-2.4); POTASSIUM SERUM 4.1 mmol/L (3.5-5.1); SODIUM SERUM 139 mmol/L (136-145)
[2017-02-24 07:06] LABS: RED CELL DISTRIBUTION WIDTH 18.4 % (11.5-14.5)
[2017-02-24 09:49] VITALS: BP 154/98
[2017-02-24 12:59] VITALS: BP 149/93
[2017-02-24 17:41] VITALS: BP 149/91
[2017-02-24 20:32] VITALS: BP 116/70
[2017-02-25 05:41] VITALS: BP 140/85
[2017-02-25 06:51] LABS: BASOPHIL % 0.8 % (0-2); PLATELET COUNT 377 x10^3mcL (130-400)
[2017-02-25 07:11] LABS: MAGNESIUM 1.5 mg/dL (1.8-2.4); PHOSPHOROUS 4.4 mg/dL (2.5-4.9)
[2017-02-25 07:28] LABS: RED CELL DISTRIBUTION WIDTH 18.4 % (11.5-14.5)
[2017-02-25 08:46] LABS: CALCIUM 8.8 mg/dL (8.5-10.1); CARBON DIOXIDE 26.8 mmol/L (21-32); CHLORIDE SERUM 105 mmol/L (98-107); CREATININE SERUM 0.7 mg/dL (0.6-1.0); GFR1 > 60 mL/min; GLUCOSE SERUM 110 mg/dL (74-106); POTASSIUM SERUM 3.8 mmol/L (3.5-5.1); SODIUM SERUM 138 mmol/L (136-145)
[2017-02-25 09:40] VITALS: BP 156/105
[2017-02-25 17:13] VITALS: BP 136/89
[2017-02-25 20:24] VITALS: BP 150/97
[2017-02-26 05:26] VITALS: BP 144/87
[2017-02-26 07:30] LABS: BASOPHIL % 0.9 % (0-2)
[2017-02-26 07:35] LABS: CALCIUM 8.4 mg/dL (8.5-10.1); CARBON DIOXIDE 28.1 mmol/L (21-32); CHLORIDE SERUM 105 mmol/L (98-107); CREATININE SERUM 0.6 mg/dL (0.6-1.0); GFR1 > 60 mL/min; GLUCOSE SERUM 76 mg/dL (74-106); MAGNESIUM 1.5 mg/dL (1.8-2.4); PHOSPHOROUS 4.3 mg/dL (2.5-4.9); POTASSIUM SERUM 4.1 mmol/L (3.5-5.1); SODIUM SERUM 139 mmol/L (136-145)
[2017-02-26 07:47] LABS: PLATELET COUNT 483 x10^3mcL (130-400); RED CELL DISTRIBUTION WIDTH 18.7 % (11.5-14.5)
[2017-02-26 12:05] VITALS: Ht 172.7 cm; Wt 112.0 kg
[2017-02-26 18:00] VITALS: BP 136/83
[2017-02-26 18:14] VITALS: BP 136/83
[2017-02-26 20:59] VITALS: BP 148/97
[2017-02-26 22:45] VITALS: BP 131/88
[2017-02-27 05:25] VITALS: BP 153/97
[2017-02-27 07:16] LABS: BASOPHIL % 0.5 % (0-2)
[2017-02-27 07:37] LABS: CALCIUM 8.6 mg/dL (8.5-10.1); CARBON DIOXIDE 28.7 mmol/L (21-32); CHLORIDE SERUM 105 mmol/L (98-107); CREATININE SERUM 0.6 mg/dL (0.6-1.0); GFR1 > 60 mL/min; GLUCOSE SERUM 74 mg/dL (74-106); MAGNESIUM 1.7 mg/dL (1.8-2.4); PHOSPHOROUS 4.2 mg/dL (2.5-4.9); POTASSIUM SERUM 4.1 mmol/L (3.5-5.1); SODIUM SERUM 140 mmol/L (136-145)
[2017-02-27 07:46] LABS: PLATELET COUNT 464 x10^3mcL (130-400); RED CELL DISTRIBUTION WIDTH 18.8 % (11.5-14.5)
[2017-02-27 11:07] VITALS: BP 149/92
[2017-02-27 17:19] VITALS: BP 138/83
[2017-02-27 20:30] VITALS: BP 142/95
[2017-02-28 05:50] VITALS: BP 138/86
[2017-02-28 06:11] LABS: CALCIUM 8.4 mg/dL (8.5-10.1); CHLORIDE SERUM 106 mmol/L (98-107); CREATININE SERUM 0.7 mg/dL (0.6-1.0); GFR1 > 60 mL/min; GLUCOSE SERUM 90 mg/dL (74-106); MAGNESIUM 1.6 mg/dL (1.8-2.4); PHOSPHOROUS 4.5 mg/dL (2.5-4.9); POTASSIUM SERUM 4.1 mmol/L (3.5-5.1); SODIUM SERUM 141 mmol/L (136-145)
[2017-02-28 06:14] LABS: BASOPHIL % 0.9 % (0-2)
[2017-02-28 06:17] LABS: PLATELET COUNT 466 x10^3mcL (130-400); RED CELL DISTRIBUTION WIDTH 18.2 % (11.5-14.5)
[2017-02-28 08:27] VITALS: BP 155/94
[2017-02-28 20:30] VITALS: BP 149/91
[2017-03-01 04:52] VITALS: BP 144/90
[2017-03-01] MEDS ORDERED: LASIX40 MG PO (09:17)
[2017-03-01] MEDS ORDERED: TOP50 PO (09:17)
[2017-03-01] MEDS ORDERED: VITC PO (09:18)
[2017-03-01] MEDS ORDERED: NORCO1 TA2 PO (09:21)
[2017-03-01] MEDS ORDERED: MAG PO (09:24)
[2017-03-01 10:06] VITALS: BP 165/96
[2017-03-01 14:10] VITALS: BP 165/96
== END 2017-03-01 16:20 | disposition home or self-care (01) | DRG 383 ==
LOC: ED 20:15 → MU 02-19 01:04 → DU 02-19 01:04 → MU 02-21 10:31
PROVIDERS: Emergency Medicine; Family Medicine; ADMIT Family Medicine Sports Medicine
DX: L03.116 Cellulitis of left lower limb (principal); N17.0 Acute kidney failure with tubular necrosis; E43 Unspecified severe protein-calorie malnutrition; D69.59 Other secondary thrombocytopenia; E83.42 Hypomagnesemia; I87.2 Venous insufficiency (chronic) (peripheral); L03.115 Cellulitis of right lower limb; I89.0 Lymphedema, not elsewhere classified; F10.10 Alcohol abuse, uncomplicated; E87.6 Hypokalemia; F41.9 Anxiety disorder, unspecified; L30.4 Erythema intertrigo; F12.10 Cannabis abuse, uncomplicated; R74.0 Nonspecific elevation of levels of transaminase and lactic acid dehydrogenase [LDH]; D63.8 Anemia in other chronic diseases classified elsewhere; R31.9 Hematuria, unspecified; E66.9 Obesity, unspecified; Z59.0 Homelessness; Z99.3 Dependence on wheelchair; Z68.37 Body mass index [BMI] 37.0-37.9, adult
CPT/HCPCS: 83880; 84439; 97110-GP; 97116-GP; 97530-GP; G0480; J0295; J1200; J1644; J1885; J1940; J1956; J2185; J3475; J3490; J7030; Q0092; Q0163

== ENCOUNTER 2017-04-02 20:31 | Inpatient (IN) | payer MEDICAID ==
[~2017-04-02] VITALS: Ht 172.7 cm; Wt 110.7 kg
[~2017-04-02 20:31] MED LIST changes: +LASIX40 MG PO; +MAG PO; +NORCO1 TA2 PO; +TOP50 PO; +VITC PO
[2017-04-02 23:04] LABS: BASOPHIL % 1.7 % (0-2)
[2017-04-02 23:07] LABS: PLATELET COUNT 675 x10^3mcL (130-400); RED CELL DISTRIBUTION WIDTH 17.6 % (11.5-14.5)
[2017-04-02 23:14] LABS: MAGNESIUM 1.3 mg/dL (1.8-2.4)
[2017-04-02 23:15] LABS: CALCIUM 8.2 mg/dL (8.5-10.1); CHLORIDE SERUM 102 mmol/L (98-107); CREATININE SERUM 0.6 mg/dL (0.6-1.0); GFR1 > 60 mL/min; GLUCOSE SERUM 87 mg/dL (74-106); POTASSIUM SERUM 3.2 mmol/L (3.5-5.1); SODIUM SERUM 140 mmol/L (136-145)
[2017-04-02 23:21] LABS: ALBUMIN 2.5 g/dL (3.4-5.0); ALKALINE PHOSPHATASE 214 U/L (46-116); ALT/SGPT 50 U/L (14-59); AST/SGOT 47 U/L (15-37); BILIRUBIN TOTAL 0.45 mg/dL (0.20-1.00); LIPASE 101 IU/L (73-393); TOTAL PROTEIN, SERUM 9.1 g/dL (6.4-8.2)
[2017-04-03 03:12] LABS: CHOLESTEROL/HDL RATIO 2.4
[2017-04-03 03:45] VITALS: BP 113/80
[2017-04-03 03:54] VITALS: Ht 172.7 cm; Wt 110.7 kg
[2017-04-03 07:51] LABS: UA SPECIFIC GRAVITY <=1.005 (1.005-1.035); microscopic required? YES; urine erythrocyte 2+ (NEGATIVE)
[2017-04-03 08:20] LABS: AMPHETAMINE QUAL UR NONE DETECTED (NEG <=1000)
[2017-04-03 09:40] VITALS: BP 135/77
[2017-04-03 13:20] VITALS: BP 153/92
[2017-04-03 14:23] LABS: BASOPHIL % 0.8 % (0-2)
[2017-04-03 14:36] LABS: CARBON DIOXIDE 24.8 mmol/L (21-32); CHLORIDE SERUM 106 mmol/L (98-107); CREATININE SERUM 0.5 mg/dL (0.6-1.0); GFR1 > 60 mL/min; GLUCOSE SERUM 113 mg/dL (74-106); PLATELET COUNT 552 x10^3mcL (130-400); POTASSIUM SERUM 3.2 mmol/L (3.5-5.1); RED CELL DISTRIBUTION WIDTH 17.3 % (11.5-14.5); SODIUM SERUM 140 mmol/L (136-145)
[2017-04-03 15:24] LABS: MAGNESIUM 1.4 mg/dL (1.8-2.4); PHOSPHOROUS 3.2 mg/dL (2.5-4.9)
[2017-04-03 17:20] VITALS: BP 144/89
[2017-04-03 21:41] VITALS: BP 138/90
[2017-04-04 06:34] VITALS: BP 121/77
[2017-04-04 06:36] VITALS: BP 121/77
[2017-04-04 07:51] LABS: BASOPHIL % 0.3 % (0-2)
[2017-04-04 07:52] LABS: PLATELET COUNT 448 x10^3mcL (130-400); RED CELL DISTRIBUTION WIDTH 17.7 % (11.5-14.5)
[2017-04-04 07:58] LABS: CALCIUM 8.7 mg/dL (8.5-10.1); CARBON DIOXIDE 25.1 mmol/L (21-32); CHLORIDE SERUM 108 mmol/L (98-107); CREATININE SERUM 0.6 mg/dL (0.6-1.0); GFR1 > 60 mL/min; GLUCOSE SERUM 73 mg/dL (74-106); MAGNESIUM 1.6 mg/dL (1.8-2.4); PHOSPHOROUS 2.9 mg/dL (2.5-4.9); POTASSIUM SERUM 3.9 mmol/L (3.5-5.1); SODIUM SERUM 142 mmol/L (136-145)
[2017-04-04 10:21] VITALS: BP 143/88
[2017-04-04] MEDS ORDERED: DIPHENHYDRAMINE50 MG PO (10:40)
[2017-04-04] MEDS ORDERED: NORCO1 TA2 PO (10:40)
[2017-04-04 12:43] VITALS: BP 143/88
[2017-04-04] MEDS ORDERED: VITC PO (13:33)
[2017-04-04] MEDS ORDERED: TOP50 PO (13:33)
[2017-04-04] MEDS ORDERED: FERROUS SULFAT325 M2 PO (13:33)
[2017-04-04] MEDS ORDERED: PANTOPRAZOLE SO40 M1 PO (13:33)
[2017-04-04] MEDS ORDERED: MAG PO (13:33)
[2017-04-04] MEDS ORDERED: LOTENSIN40 MG PO (13:33)
[2017-04-04] MEDS ORDERED: VITAMIN B121000 MCG PO (13:33)
== END 2017-04-04 13:40 | disposition home or self-care (01) | DRG 383 ==
LOC: ED 20:31 → DU 23:57 → MU 04-03 17:20
PROVIDERS: Emergency Medicine; Student in an Organized Health Care Education/Training Program
DX: L03.116 Cellulitis of left lower limb (principal); E43 Unspecified severe protein-calorie malnutrition; G92 Toxic encephalopathy; D68.9 Coagulation defect, unspecified; L97.811 Non-pressure chronic ulcer of other part of right lower leg limited to breakdown of skin; K70.30 Alcoholic cirrhosis of liver without ascites; L97.821 Non-pressure chronic ulcer of other part of left lower leg limited to breakdown of skin; L03.115 Cellulitis of right lower limb; T51.0X1A Toxic effect of ethanol, accidental (unintentional), initial encounter; I83.018 Varicose veins of right lower extremity with ulcer other part of lower leg; I83.028 Varicose veins of left lower extremity with ulcer other part of lower leg; D63.8 Anemia in other chronic diseases classified elsewhere; E87.6 Hypokalemia; E83.42 Hypomagnesemia; D47.3 Essential (hemorrhagic) thrombocythemia; I10 Essential (primary) hypertension; F10.229 Alcohol dependence with intoxication, unspecified; F41.9 Anxiety disorder, unspecified; E66.9 Obesity, unspecified; Z68.37 Body mass index [BMI] 37.0-37.9, adult; Z59.0 Homelessness; Z99.3 Dependence on wheelchair; Z91.19 Patient's noncompliance with other medical treatment and regimen; Z79.891 Long term (current) use of opiate analgesic; Y90.7 Blood alcohol level of 200-239 mg/100 ml; Y92.009 Unspecified place in unspecified non-institutional (private) residence as the place of occurrence of the external cause
CPT/HCPCS: 83880; 84439; 87804; G0480; J0456; J1885; J1956; J2543; J3370; J3480; J3490; J7030; Q0092; Q0163

== ENCOUNTER 2017-04-11 17:46 | Inpatient (IN) | payer MEDICAID ==
[~2017-04-11] VITALS: Ht 172.7 cm; Wt 117.5 kg
[2017-04-11 19:23] LABS: CALCIUM 8.2 mg/dL (8.5-10.1); CARBON DIOXIDE 26.7 mmol/L (21-32); CHLORIDE SERUM 107 mmol/L (98-107); CREATININE SERUM 0.4 mg/dL (0.6-1.0); GFR1 > 60 mL/min; GLUCOSE SERUM 73 mg/dL (74-106); POTASSIUM SERUM 3.2 mmol/L (3.5-5.1); SODIUM SERUM 145 mmol/L (136-145)
[2017-04-11 19:27] LABS: ALKALINE PHOSPHATASE 183 U/L (46-116); ALT/SGPT 31 U/L (14-59); AST/SGOT 45 U/L (15-37); BILIRUBIN TOTAL 0.42 mg/dL (0.20-1.00)
[2017-04-11 19:38] LABS: ALBUMIN 2.4 g/dL (3.4-5.0); BASOPHIL % 0.3 % (0-2); PLATELET COUNT 494 x10^3mcL (130-400); TOTAL PROTEIN, SERUM 8.4 g/dL (6.4-8.2)
[2017-04-12 00:27] LABS: FREE T4 1.4 ng/dL (0.76-1.46)
[2017-04-12 02:31] LABS: TOTAL IRON BINDING CAPACITY 287 ug/dL (250-450)
[2017-04-12 02:33] LABS: IRON 33 ug/dL (50-170)
[2017-04-12 03:56] VITALS: BP 148/100
[2017-04-12 04:14] LABS: T3 TOTAL 0.9 ng/mL
[2017-04-12 04:15] LABS: CHOLESTEROL/HDL RATIO 1.6; MAGNESIUM 1.5 mg/dL (1.8-2.4); PHOSPHOROUS 3.6 mg/dL (2.5-4.9)
[2017-04-12 04:24] LABS: FREE T4 1.41 ng/dL (0.76-1.46); FREE THYROXINE INDEX 2.2 ug/dL (1.4-4.5)
[2017-04-12 04:50] LABS: RED BLOOD CELLS 3.76 M/mm3 (4.10-5.10)
[2017-04-12 05:22] VITALS: BP 148/100
[2017-04-12 06:32] LABS: CALCIUM 7.8 mg/dL (8.5-10.1); CARBON DIOXIDE 28.7 mmol/L (21-32); CHLORIDE SERUM 108 mmol/L (98-107); CREATININE SERUM 0.5 mg/dL (0.6-1.0); GFR1 > 60 mL/min; GLUCOSE SERUM 76 mg/dL (74-106); MAGNESIUM 1.3 mg/dL (1.8-2.4); PHOSPHOROUS 4.2 mg/dL (2.5-4.9); POTASSIUM SERUM 3.6 mmol/L (3.5-5.1); SODIUM SERUM 147 mmol/L (136-145)
[2017-04-12 06:58] LABS: BASOPHIL % 0.2 % (0-2); PLATELET COUNT 322 x10^3mcL (130-400); RED CELL DISTRIBUTION WIDTH 17.6 % (11.5-14.5)
[2017-04-12 09:55] VITALS: BP 136/88
[2017-04-12 13:07] VITALS: BP 142/92
[2017-04-12] MEDS ORDERED: LEVOFLOXACIN I150 ML IV (15:18)
[2017-04-12] MEDS ORDERED: NOVAPLUS CLINDA1 SO1 IV (15:19)
[2017-04-12] MEDS ORDERED: LIO10 PO (15:20)
[2017-04-12] MEDS ORDERED: KETOROLAC30 MG/ML IV (15:21)
[2017-04-12] MEDS ORDERED: ACETAMINOPHEN-H1 TA1 PO (15:21)
[2017-04-12] MEDS ORDERED: TYL325 PO (15:22)
[2017-04-12] MEDS ORDERED: APAP/HYDROCODON1 T13 PO (15:22)
[2017-04-12] MEDS ORDERED: LIB25 PO (15:23)
[2017-04-12] MEDS ORDERED: MAG PO (15:26)
[2017-04-12] MEDS ORDERED: ATI1 PO (15:26)
[2017-04-12] MEDS ORDERED: ZOFI IV (15:27)
[2017-04-12] MEDS ORDERED: COL100 PO (15:27)
[2017-04-12] MEDS ORDERED: PRI20 PO (15:28)
[2017-04-12] MEDS ORDERED: LAC PO (15:29)
[2017-04-12] MEDS ORDERED: MYCP TOP (15:38)
[2017-04-12] MEDS ORDERED: LEADER NATURA500 MCG PO (15:38)
[2017-04-12] MEDS ORDERED: VITC PO (15:39)
[2017-04-12] MEDS ORDERED: THI100 PO (15:39)
[2017-04-12] MEDS ORDERED: FOL1 PO (15:39)
[2017-04-12] MEDS ORDERED: THERAGRAN-M1 TA4 PO (15:40)
[2017-04-12 17:54] VITALS: BP 146/92
[2017-04-12 21:21] VITALS: BP 149/93
[2017-04-13 05:34] VITALS: BP 125/95
[2017-04-13 09:35] VITALS: BP 144/95
[2017-04-13 10:56] VITALS: BP 144/95
[2017-04-13 17:59] VITALS: BP 161/97
[2017-04-13 22:39] VITALS: BP 126/85
[2017-04-14 06:17] LABS: BASOPHIL % 0.2 % (0-2); PLATELET COUNT 242 x10^3mcL (130-400)
[2017-04-14 06:22] LABS: RED CELL DISTRIBUTION WIDTH 17.6 % (11.5-14.5)
[2017-04-14 06:37] LABS: CALCIUM 8.4 mg/dL (8.5-10.1); CARBON DIOXIDE 28.3 mmol/L (21-32); CHLORIDE SERUM 106 mmol/L (98-107); CREATININE SERUM 0.6 mg/dL (0.6-1.0); GFR1 > 60 mL/min; GLUCOSE SERUM 69 mg/dL (74-106); MAGNESIUM 1.9 mg/dL (1.8-2.4); PHOSPHOROUS 4.4 mg/dL (2.5-4.9); POTASSIUM SERUM 4.5 mmol/L (3.5-5.1); SODIUM SERUM 140 mmol/L (136-145)
[2017-04-14 07:18] VITALS: BP 127/85
[2017-04-14 11:04] VITALS: BP 129/86
[2017-04-14 12:42] VITALS: Ht 172.7 cm; Wt 117.5 kg
[2017-04-14 18:16] VITALS: BP 148/101
[2017-04-14 22:04] VITALS: BP 133/86
[2017-04-15 06:05] VITALS: BP 145/95
[2017-04-15 06:38] LABS: BASOPHIL % 0.3 % (0-2); PLATELET COUNT 254 x10^3mcL (130-400)
[2017-04-15 06:56] LABS: RED CELL DISTRIBUTION WIDTH 17.7 % (11.5-14.5)
[2017-04-15 07:08] LABS: CALCIUM 8.1 mg/dL (8.5-10.1); CARBON DIOXIDE 27.5 mmol/L (21-32); CHLORIDE SERUM 105 mmol/L (98-107); CREATININE SERUM 0.6 mg/dL (0.6-1.0); GFR1 > 60 mL/min; GLUCOSE SERUM 88 mg/dL (74-106); MAGNESIUM 1.6 mg/dL (1.8-2.4); PHOSPHOROUS 4.2 mg/dL (2.5-4.9); POTASSIUM SERUM 4.2 mmol/L (3.5-5.1); SODIUM SERUM 140 mmol/L (136-145)
[2017-04-15 09:01] VITALS: BP 148/100
[2017-04-15 10:16] VITALS: BP 148/100
[2017-04-15 16:29] VITALS: BP 155/98
[2017-04-15 19:47] LABS: UA SPECIFIC GRAVITY 1.025 (1.005-1.035); microscopic required? YES; urine erythrocyte TRACE (NEGATIVE)
[2017-04-15 19:54] LABS: AMPHETAMINE QUAL UR NONE DETECTED (NEG <=1000)
[2017-04-15 21:42] VITALS: BP 151/95
[2017-04-16 05:23] VITALS: BP 150/88
[2017-04-16 07:23] LABS: BASOPHIL % 0.3 % (0-2); PLATELET COUNT 217 x10^3mcL (130-400)
[2017-04-16 07:28] LABS: CALCIUM 8.1 mg/dL (8.5-10.1); CARBON DIOXIDE 27.8 mmol/L (21-32); CHLORIDE SERUM 106 mmol/L (98-107); CREATININE SERUM 0.7 mg/dL (0.6-1.0); GFR1 > 60 mL/min; GLUCOSE SERUM 87 mg/dL (74-106); MAGNESIUM 1.5 mg/dL (1.8-2.4); PHOSPHOROUS 4.4 mg/dL (2.5-4.9); POTASSIUM SERUM 4.4 mmol/L (3.5-5.1); SODIUM SERUM 140 mmol/L (136-145)
[2017-04-16 07:33] LABS: RED CELL DISTRIBUTION WIDTH 17.6 % (11.5-14.5)
[2017-04-16 09:21] VITALS: BP 159/99
[2017-04-16 17:58] VITALS: BP 153/90
[2017-04-16 22:14] VITALS: BP 150/97
[2017-04-17 06:11] VITALS: BP 156/98
[2017-04-17 09:21] VITALS: BP 145/90
[2017-04-17 21:36] VITALS: BP 162/96
[2017-04-18 07:28] LABS: BASOPHIL % 0.2 % (0-2); PLATELET COUNT 168 x10^3mcL (130-400)
[2017-04-18 07:29] LABS: RED CELL DISTRIBUTION WIDTH 18.2 % (11.5-14.5)
[2017-04-18 07:35] LABS: CALCIUM 8.2 mg/dL (8.5-10.1); CARBON DIOXIDE 25.8 mmol/L (21-32); CHLORIDE SERUM 104 mmol/L (98-107); CREATININE SERUM 0.5 mg/dL (0.6-1.0); GFR1 > 60 mL/min; GLUCOSE SERUM 82 mg/dL (74-106); MAGNESIUM 1.6 mg/dL (1.8-2.4); SODIUM SERUM 137 mmol/L (136-145)
[2017-04-18 07:39] LABS: POTASSIUM SERUM 6.2 mmol/L (3.5-5.1)
[2017-04-18 09:23] VITALS: BP 150/101
[2017-04-18 17:30] VITALS: BP 145/98
[2017-04-18 17:40] LABS: CALCIUM 8.4 mg/dL (8.5-10.1); CARBON DIOXIDE 29.4 mmol/L (21-32); CHLORIDE SERUM 104 mmol/L (98-107); CREATININE SERUM 0.7 mg/dL (0.6-1.0); GFR1 > 60 mL/min; GLUCOSE SERUM 99 mg/dL (74-106); POTASSIUM SERUM 3.8 mmol/L (3.5-5.1); SODIUM SERUM 141 mmol/L (136-145)
[2017-04-18 21:50] VITALS: BP 122/76
[2017-04-19 04:39] VITALS: BP 138/96
[2017-04-19 07:20] LABS: CALCIUM 8.1 mg/dL (8.5-10.1); CHLORIDE SERUM 105 mmol/L (98-107); CREATININE SERUM 0.6 mg/dL (0.6-1.0); GFR1 > 60 mL/min; GLUCOSE SERUM 82 mg/dL (74-106); MAGNESIUM 1.6 mg/dL (1.8-2.4); PHOSPHOROUS 5.2 mg/dL (2.5-4.9); POTASSIUM SERUM 4.1 mmol/L (3.5-5.1); SODIUM SERUM 141 mmol/L (136-145)
[2017-04-19 07:26] LABS: BASOPHIL % 0.2 % (0-2); PLATELET COUNT 155 x10^3mcL (130-400); RED CELL DISTRIBUTION WIDTH 19.2 % (11.5-14.5)
[2017-04-19 08:56] VITALS: BP 140/97
[2017-04-19 17:37] VITALS: BP 146/94
[2017-04-19 21:31] VITALS: BP 136/91
[2017-04-20 06:05] VITALS: BP 142/89
[2017-04-20 07:12] LABS: CALCIUM 8.6 mg/dL (8.5-10.1); CARBON DIOXIDE 28.9 mmol/L (21-32); CHLORIDE SERUM 103 mmol/L (98-107); CREATININE SERUM 0.7 mg/dL (0.6-1.0); GFR1 > 60 mL/min; GLUCOSE SERUM 79 mg/dL (74-106); MAGNESIUM 1.9 mg/dL (1.8-2.4); PHOSPHOROUS 4.4 mg/dL (2.5-4.9); POTASSIUM SERUM 4.2 mmol/L (3.5-5.1); SODIUM SERUM 140 mmol/L (136-145)
[2017-04-20 07:21] LABS: BASOPHIL % 0.3 % (0-2); PLATELET COUNT 182 x10^3mcL (130-400)
[2017-04-20 10:14] VITALS: BP 147/90
[2017-04-20] MEDS ORDERED: TOP50 PO (10:35)
[2017-04-20] MEDS ORDERED: MYCOC TOP (10:35)
[2017-04-20] MEDS ORDERED: PANTOPRAZOLE SO40 M1 PO (10:35)
[2017-04-20] MEDS ORDERED: CLINDAMYCIN HC300 MG PO (10:35)
[2017-04-20] MEDS ORDERED: LOTENSIN40 MG PO (10:35)
[2017-04-20] MEDS ORDERED: APAP/HYDROCODON1 T13 PO (10:35)
[2017-04-20] MEDS ORDERED: VITC PO (10:35)
[2017-04-20] MEDS ORDERED: VENTOLIN H0.09 MG/A1 INH (10:35)
[2017-04-20] MEDS ORDERED: LEVAQUIN750 MG PO (10:35)
[2017-04-20] MEDS ORDERED: LIB25 PO (10:35)
[2017-04-20] MEDS ORDERED: CYCLOBENZAPRINE5 MG PO (10:35)
[2017-04-20] MEDS ORDERED: ATA25 PO (10:35)
[2017-04-20] MEDS ORDERED: LIO10 PO (10:35)
[2017-04-20] MEDS ORDERED: THI100 PO (10:35)
[2017-04-20] MEDS ORDERED: THERAGRAN-M1 TA4 PO (10:35)
[2017-04-20] MEDS ORDERED: FOL1 PO (10:35)
[2017-04-20] MEDS ORDERED: FERROUS SULFAT325 M2 PO (10:35)
[2017-04-20] MEDS ORDERED: MAG PO (10:35)
[2017-04-20] MEDS ORDERED: DIPHENHYDRAMINE50 MG PO (10:35)
[2017-04-20] MEDS ORDERED: COL100 PO (10:35)
[2017-04-20] MEDS ORDERED: LAC PO (10:35)
[2017-04-20] MEDS ORDERED: LEADER NATURA500 MCG PO (10:35)
[2017-04-20 11:02] VITALS: BP 147/90
== END 2017-04-20 11:56 | disposition home or self-care (01) | DRG 720 ==
LOC: ED 17:46 → DU 04-12 00:54 → ED 04-12 00:54 → MU 04-12 00:54 → DU 04-12 00:54 → ED 04-15 00:54 → MU 04-15 00:54 → DU 04-15 00:54 → MU 04-15 00:54
PROVIDERS: Emergency Medicine; Family Medicine; Student in an Organized Health Care Education/Training Program
DX: A41.9 Sepsis, unspecified organism (principal); J69.0 Pneumonitis due to inhalation of food and vomit; G93.41 Metabolic encephalopathy; E43 Unspecified severe protein-calorie malnutrition; L89.322 Pressure ulcer of left buttock, stage 2; L89.312 Pressure ulcer of right buttock, stage 2; E87.8 Other disorders of electrolyte and fluid balance, not elsewhere classified; D64.9 Anemia, unspecified; E83.42 Hypomagnesemia; I83.228 Varicose veins of left lower extremity with both ulcer of other part of lower extremity and inflammation; L97.829 Non-pressure chronic ulcer of other part of left lower leg with unspecified severity; K70.30 Alcoholic cirrhosis of liver without ascites; T51.0X1A Toxic effect of ethanol, accidental (unintentional), initial encounter; F10.229 Alcohol dependence with intoxication, unspecified; F10.239 Alcohol dependence with withdrawal, unspecified; S31.109A Unspecified open wound of abdominal wall, unspecified quadrant without penetration into peritoneal cavity, initial encounter; B96.20 Unspecified Escherichia coli [E. coli] as the cause of diseases classified elsewhere; E87.6 Hypokalemia; R74.0 Nonspecific elevation of levels of transaminase and lactic acid dehydrogenase [LDH]; Z59.0 Homelessness; Z68.39 Body mass index [BMI] 39.0-39.9, adult; Z16.24 Resistance to multiple antibiotics; Y90.7 Blood alcohol level of 200-239 mg/100 ml; X58.XXXA Exposure to other specified factors, initial encounter; Y92.89 Other specified places as the place of occurrence of the external cause
CPT/HCPCS: 83880; 84439; 94150; G0480; J1200; J1644; J1885; J1956; J2405; J2543; J3475; J3480; J3490; J7030; J7620; Q0092; Q0163

== ENCOUNTER 2017-05-21 16:30 | Inpatient (IN) | payer MEDICAID ==
[~2017-05-21] VITALS: Ht 172.7 cm; Wt 114.0 kg
[~2017-05-21 16:30] MED LIST changes: +ACETAMINOPHEN-H1 TA1 PO; +ATA25 PO; +ATI1 PO; +CLINDAMYCIN HC300 MG PO; +COL100 PO; +CYCLOBENZAPRINE5 MG PO; +FOL1 PO; +KETOROLAC30 MG/ML IV; +LEADER NATURA500 MCG PO; +LEVOFLOXACIN I150 ML IV; +LIB25 PO; +LIO10 PO; +MYCP TOP; +NOVAPLUS CLINDA1 SO1 IV; +PRI20 PO; +THERAGRAN-M1 TA4 PO; +THI100 PO; +TYL325 PO; +VENTOLIN H0.09 MG/A1 INH; +ZOFI IV
[2017-05-21 17:58] LABS: PLATELET COUNT 212 x10^3mcL (130-400)
[2017-05-21 18:02] LABS: RED CELL DISTRIBUTION WIDTH 20.9 % (11.5-14.5)
[2017-05-21 18:06] LABS: ALKALINE PHOSPHATASE 115 U/L (46-116); ALT/SGPT 36 U/L (14-59); AST/SGOT 70 U/L (15-37); BILIRUBIN TOTAL 0.89 mg/dL (0.20-1.00); CARBON DIOXIDE 23.1 mmol/L (21-32); CHLORIDE SERUM 94 mmol/L (98-107); CREATININE SERUM 0.8 mg/dL (0.6-1.0); GFR1 > 60 mL/min; GLUCOSE SERUM 88 mg/dL (74-106); LIPASE 63 IU/L (73-393); SODIUM SERUM 132 mmol/L (136-145)
[2017-05-21 18:07] LABS: ALBUMIN 2.1 g/dL (3.4-5.0); TOTAL PROTEIN, SERUM 8.3 g/dL (6.4-8.2)
[2017-05-21 18:08] LABS: POTASSIUM SERUM 2.7 mmol/L (3.5-5.1)
[2017-05-21 18:26] LABS: SEGMENTED NEUTROPHILS 68 % (37-75)
[2017-05-21 18:27] LABS: BAND NEUTROPHIL 8 % (0-10); MONOCYTE 9 % (0-7); rbc morphology (normal/abnorm) ABNORMAL (NORMAL)
[2017-05-21 18:28] LABS: PLATELET MORPHOLOGY PLATELETS NORMAL
[2017-05-21 21:00] VITALS: BP 128/78
[2017-05-21 21:52] LABS: T3 TOTAL 0.68 ng/mL
[2017-05-21 22:02] LABS: FREE T4 1.67 ng/dL (0.76-1.46); FREE THYROXINE INDEX 2.1 ug/dL (1.4-4.5); T4(THYROXINE) 5.5 ug/dL (4.7-13.3)
[2017-05-21 22:31] VITALS: BP 130/71
[2017-05-21 22:55] LABS: MAGNESIUM 1.1 mg/dL (1.8-2.4); PHOSPHOROUS 2.1 mg/dL (2.5-4.9)
[2017-05-21 22:56] LABS: CHOLESTEROL/HDL RATIO 1.8
[2017-05-21 23:07] VITALS: BP 128/78
[2017-05-22] VITALS (18 sets, daily range): BP systolic 112–188; BP diastolic 67–105
[2017-05-22 05:19] LABS: BASOPHIL % 0.1 % (0-2)
[2017-05-22 05:32] LABS: RED CELL DISTRIBUTION WIDTH 21.2 % (11.5-14.5)
[2017-05-22 05:36] LABS: CALCIUM 7.2 mg/dL (8.5-10.1); CARBON DIOXIDE 26.4 mmol/L (21-32); CHLORIDE SERUM 101 mmol/L (98-107); CREATININE SERUM 0.6 mg/dL (0.6-1.0); GFR1 > 60 mL/min; GLUCOSE SERUM 104 mg/dL (74-106); MAGNESIUM 1.3 mg/dL (1.8-2.4); PHOSPHOROUS 2.7 mg/dL (2.5-4.9); SODIUM SERUM 137 mmol/L (136-145)
[2017-05-22 05:45] LABS: rbc morphology (normal/abnorm) ABNORMAL (NORMAL)
[2017-05-22 05:46] LABS: PLATELET COUNT 107 x10^3mcL (130-400)
[2017-05-23] VITALS (11 sets, daily range): BP systolic 99–123; BP diastolic 64–76; Ht 172.7 cm; Wt 114.0 kg
[2017-05-23 05:48] LABS: BASOPHIL % 0.3 % (0-2)
[2017-05-23 05:53] LABS: PLATELET COUNT 112 x10^3mcL (130-400); RED CELL DISTRIBUTION WIDTH 21.7 % (11.5-14.5)
[2017-05-23 05:58] LABS: CALCIUM 7.2 mg/dL (8.5-10.1); CARBON DIOXIDE 27.6 mmol/L (21-32); CHLORIDE SERUM 105 mmol/L (98-107); CREATININE SERUM 0.6 mg/dL (0.6-1.0); GFR1 > 60 mL/min; GLUCOSE SERUM 88 mg/dL (74-106); MAGNESIUM 1.6 mg/dL (1.8-2.4); PHOSPHOROUS 2.6 mg/dL (2.5-4.9); POTASSIUM SERUM 3.2 mmol/L (3.5-5.1); SODIUM SERUM 140 mmol/L (136-145)
[2017-05-23 07:32] LABS: RED BLOOD CELLS 2.84 M/mm3 (4.10-5.10)
[2017-05-23 07:52] LABS: IRON 21 ug/dL (50-170); TOTAL IRON BINDING CAPACITY 202 ug/dL (250-450)
[2017-05-23 09:00] LABS: rbc morphology (normal/abnorm) ABNORMAL (NORMAL); schistocyte (helmet cell) 2+
[2017-05-24 03:12] VITALS: BP 141/55
[2017-05-24 05:39] LABS: BASOPHIL % 0.6 % (0-2); PLATELET COUNT 199 x10^3mcL (130-400)
[2017-05-24 05:54] LABS: RED CELL DISTRIBUTION WIDTH 21.9 % (11.5-14.5)
[2017-05-24 05:58] LABS: CALCIUM 7.6 mg/dL (8.5-10.1); CARBON DIOXIDE 29.1 mmol/L (21-32); CHLORIDE SERUM 105 mmol/L (98-107); CREATININE SERUM 0.6 mg/dL (0.6-1.0); GFR1 > 60 mL/min; GLUCOSE SERUM 79 mg/dL (74-106); MAGNESIUM 1.7 mg/dL (1.8-2.4); POTASSIUM SERUM 3.4 mmol/L (3.5-5.1); SODIUM SERUM 140 mmol/L (136-145)
[2017-05-24 06:43] LABS: ovalocyte/elliptocyte 1+; rbc morphology (normal/abnorm) ABNORMAL (NORMAL)
[2017-05-24 07:50] VITALS: BP 112/70
[2017-05-24 11:15] VITALS: BP 110/72
[2017-05-24 16:49] VITALS: BP 105/75
[2017-05-24 16:57] VITALS: BP 105/75
[2017-05-25 05:18] VITALS: BP 125/95
[2017-05-25 06:42] LABS: BASOPHIL % 0.2 % (0-2); PLATELET COUNT 300 x10^3mcL (130-400)
[2017-05-25 06:43] LABS: RED CELL DISTRIBUTION WIDTH 21.3 % (11.5-14.5); rbc morphology (normal/abnorm) ABNORMAL (NORMAL)
[2017-05-25 07:11] LABS: CALCIUM 7.7 mg/dL (8.5-10.1); CARBON DIOXIDE 26.8 mmol/L (21-32); CHLORIDE SERUM 106 mmol/L (98-107); CREATININE SERUM 0.5 mg/dL (0.6-1.0); GFR1 > 60 mL/min; GLUCOSE SERUM 86 mg/dL (74-106); MAGNESIUM 1.7 mg/dL (1.8-2.4); POTASSIUM SERUM 4.2 mmol/L (3.5-5.1); SODIUM SERUM 139 mmol/L (136-145)
[2017-05-25 08:20] VITALS: BP 117/76
[2017-05-25 10:00] VITALS: BP 117/76
[2017-05-25 14:46] VITALS: BP 116/70
[2017-05-25 16:09] VITALS: BP 114/80
[2017-05-25 20:19] LABS: UA SPECIFIC GRAVITY >=1.030 (1.005-1.035); microscopic required? YES; urine erythrocyte 3+ (NEGATIVE)
[2017-05-25 21:01] VITALS: BP 128/86
[2017-05-26 06:02] VITALS: BP 116/70
[2017-05-26 07:22] LABS: BASOPHIL % 0.3 % (0-2); PLATELET COUNT 313 x10^3mcL (130-400)
[2017-05-26 07:33] LABS: CALCIUM 7.6 mg/dL (8.5-10.1); CARBON DIOXIDE 26.5 mmol/L (21-32); CHLORIDE SERUM 106 mmol/L (98-107); CREATININE SERUM 0.6 mg/dL (0.6-1.0); GFR1 > 60 mL/min; GLUCOSE SERUM 78 mg/dL (74-106); MAGNESIUM 1.4 mg/dL (1.8-2.4); PHOSPHOROUS 3.1 mg/dL (2.5-4.9); POTASSIUM SERUM 4.1 mmol/L (3.5-5.1); SODIUM SERUM 138 mmol/L (136-145)
[2017-05-26 07:43] LABS: RED CELL DISTRIBUTION WIDTH 21.4 % (11.5-14.5)
[2017-05-26 08:36] LABS: rbc morphology (normal/abnorm) ABNORMAL (NORMAL)
[2017-05-26 09:18] VITALS: BP 146/81
[2017-05-26 13:41] VITALS: BP 141/97
[2017-05-26 17:29] VITALS: BP 156/107; BP 156/170
[2017-05-26 17:50] VITALS: BP 150/103
[2017-05-26 21:17] VITALS: BP 149/90
[2017-05-27 05:49] VITALS: BP 135/71
[2017-05-27 06:58] LABS: BASOPHIL % 0.3 % (0-2); PLATELET COUNT 323 x10^3mcL (130-400)
[2017-05-27 07:06] LABS: CALCIUM 7.8 mg/dL (8.5-10.1); CARBON DIOXIDE 25.5 mmol/L (21-32); CHLORIDE SERUM 108 mmol/L (98-107); CREATININE SERUM 0.5 mg/dL (0.6-1.0); GFR1 > 60 mL/min; GLUCOSE SERUM 87 mg/dL (74-106); MAGNESIUM 1.3 mg/dL (1.8-2.4); PHOSPHOROUS 2.9 mg/dL (2.5-4.9); POTASSIUM SERUM 3.9 mmol/L (3.5-5.1); RED CELL DISTRIBUTION WIDTH 21.5 % (11.5-14.5); SODIUM SERUM 140 mmol/L (136-145)
[2017-05-27 07:07] LABS: rbc morphology (normal/abnorm) ABNORMAL (NORMAL)
[2017-05-27 09:26] VITALS: BP 160/115
[2017-05-27 12:55] VITALS: BP 139/90
[2017-05-27 14:45] VITALS: BP 136/82
[2017-05-27 18:00] VITALS: BP 157/95
[2017-05-27 19:40] VITALS: BP 128/80
[2017-05-28] VITALS (7 sets, daily range): BP systolic 117–160; BP diastolic 78–108
[2017-05-28 06:57] LABS: BASOPHIL % 1.2 % (0-2); PLATELET COUNT 288 x10^3mcL (130-400)
[2017-05-28 07:11] LABS: CALCIUM 7.8 mg/dL (8.5-10.1); CARBON DIOXIDE 26.6 mmol/L (21-32); CHLORIDE SERUM 106 mmol/L (98-107); CREATININE SERUM 0.6 mg/dL (0.6-1.0); GFR1 > 60 mL/min; GLUCOSE SERUM 84 mg/dL (74-106); MAGNESIUM 1.4 mg/dL (1.8-2.4); PHOSPHOROUS 3.8 mg/dL (2.5-4.9); POTASSIUM SERUM 4.1 mmol/L (3.5-5.1); SODIUM SERUM 139 mmol/L (136-145)
[2017-05-29 06:27] VITALS: BP 135/92
[2017-05-29 08:39] LABS: BASOPHIL % 1.3 % (0-2); PLATELET COUNT 209 x10^3mcL (130-400)
[2017-05-29 08:43] LABS: RED CELL DISTRIBUTION WIDTH 21.7 % (11.5-14.5)
[2017-05-29 09:20] LABS: CARBON DIOXIDE 25.4 mmol/L (21-32); CHLORIDE SERUM 106 mmol/L (98-107); CREATININE SERUM 0.5 mg/dL (0.6-1.0); GFR1 > 60 mL/min; GLUCOSE SERUM 81 mg/dL (74-106); MAGNESIUM 1.4 mg/dL (1.8-2.4); POTASSIUM SERUM 4.1 mmol/L (3.5-5.1); SODIUM SERUM 138 mmol/L (136-145)
[2017-05-29 10:54] VITALS: BP 136/83
[2017-05-29 16:37] VITALS: BP 161/100
[2017-05-30 06:35] VITALS: BP 143/81
[2017-05-30 06:59] LABS: BASOPHIL % 1.8 % (0-2); PLATELET COUNT 373 x10^3mcL (130-400)
[2017-05-30 07:06] LABS: RED CELL DISTRIBUTION WIDTH 22.1 % (11.5-14.5)
[2017-05-30 07:07] LABS: rbc morphology (normal/abnorm) ABNORMAL (NORMAL)
[2017-05-30 10:12] VITALS: BP 135/91
[2017-05-30 16:42] VITALS: BP 101/63
[2017-05-30 21:45] VITALS: BP 165/90
[2017-05-31 05:31] VITALS: BP 145/97
[2017-05-31 06:58] LABS: BASOPHIL % 1.3 % (0-2)
[2017-05-31 07:00] LABS: PLATELET COUNT 487 x10^3mcL (130-400); RED CELL DISTRIBUTION WIDTH 22.2 % (11.5-14.5)
[2017-05-31 07:07] LABS: CALCIUM 8.2 mg/dL (8.5-10.1); CARBON DIOXIDE 24.1 mmol/L (21-32); CHLORIDE SERUM 107 mmol/L (98-107); CREATININE SERUM 0.5 mg/dL (0.6-1.0); GFR1 > 60 mL/min; GLUCOSE SERUM 80 mg/dL (74-106); MAGNESIUM 1.4 mg/dL (1.8-2.4); PHOSPHOROUS 3.4 mg/dL (2.5-4.9); POTASSIUM SERUM 4.3 mmol/L (3.5-5.1); SODIUM SERUM 139 mmol/L (136-145)
[2017-05-31 09:34] VITALS: BP 151/97
[2017-05-31 13:16] VITALS: BP 151/97
[2017-05-31 17:11] VITALS: BP 128/81
[2017-05-31 21:27] VITALS: BP 130/87
[2017-06-01 05:51] VITALS: BP 151/101
[2017-06-01 07:14] LABS: PLATELET COUNT 478 x10^3mcL (130-400); RED CELL DISTRIBUTION WIDTH 22.6 % (11.5-14.5); rbc morphology (normal/abnorm) ABNORMAL (NORMAL)
[2017-06-01 07:26] LABS: CALCIUM 8.2 mg/dL (8.5-10.1); CARBON DIOXIDE 25.9 mmol/L (21-32); CHLORIDE SERUM 107 mmol/L (98-107); CREATININE SERUM 0.6 mg/dL (0.6-1.0); GFR1 > 60 mL/min; GLUCOSE SERUM 92 mg/dL (74-106); MAGNESIUM 1.3 mg/dL (1.8-2.4); PHOSPHOROUS 3.7 mg/dL (2.5-4.9); POTASSIUM SERUM 4.4 mmol/L (3.5-5.1); SODIUM SERUM 141 mmol/L (136-145)
[2017-06-01 09:13] VITALS: BP 170/105
[2017-06-01 13:32] VITALS: BP 163/115
[2017-06-01 17:14] VITALS: BP 149/91
[2017-06-01 21:56] VITALS: BP 162/96
[2017-06-02] VITALS (8 sets, daily range): BP systolic 146–161; BP diastolic 93–103
[2017-06-02 06:51] LABS: BASOPHIL % 0.4 % (0-2)
[2017-06-02 07:17] LABS: PLATELET COUNT 463 x10^3mcL (130-400); RED CELL DISTRIBUTION WIDTH 22.4 % (11.5-14.5)
[2017-06-02 07:57] LABS: CALCIUM 8.2 mg/dL (8.5-10.1); CARBON DIOXIDE 28.4 mmol/L (21-32); CHLORIDE SERUM 105 mmol/L (98-107); CREATININE SERUM 0.6 mg/dL (0.6-1.0); GFR1 > 60 mL/min; GLUCOSE SERUM 84 mg/dL (74-106); MAGNESIUM 1.2 mg/dL (1.8-2.4); PHOSPHOROUS 3.9 mg/dL (2.5-4.9); POTASSIUM SERUM 4.4 mmol/L (3.5-5.1); SODIUM SERUM 140 mmol/L (136-145)
[2017-06-03 05:46] VITALS: BP 170/105
[2017-06-03 06:34] VITALS: BP 157/97
[2017-06-03 07:11] LABS: BASOPHIL % 0.5 % (0-2); CALCIUM 8.3 mg/dL (8.5-10.1); CARBON DIOXIDE 29.9 mmol/L (21-32); CHLORIDE SERUM 103 mmol/L (98-107); CREATININE SERUM 0.6 mg/dL (0.6-1.0); GFR1 > 60 mL/min; GLUCOSE SERUM 85 mg/dL (74-106); SODIUM SERUM 139 mmol/L (136-145)
[2017-06-03 07:15] LABS: PLATELET COUNT 432 x10^3mcL (130-400); RED CELL DISTRIBUTION WIDTH 22.3 % (11.5-14.5)
[2017-06-03 07:16] LABS: rbc morphology (normal/abnorm) ABNORMAL (NORMAL)
[2017-06-03 07:46] LABS: MAGNESIUM 1.2 mg/dL (1.8-2.4); PHOSPHOROUS 4.4 mg/dL (2.5-4.9)
[2017-06-03 10:00] VITALS: BP 174/104
[2017-06-03 13:01] VITALS: BP 156/101
[2017-06-03 17:37] VITALS: BP 157/96
[2017-06-03 20:58] VITALS: BP 144/94
[2017-06-04 05:48] VITALS: BP 146/103
[2017-06-04 08:00] VITALS: BP 151/104
[2017-06-04 10:13] LABS: BASOPHIL % 0.5 % (0-2); PLATELET COUNT 379 x10^3mcL (130-400); RED CELL DISTRIBUTION WIDTH 22.4 % (11.5-14.5)
[2017-06-04 10:14] LABS: rbc morphology (normal/abnorm) ABNORMAL (NORMAL)
[2017-06-04 10:20] LABS: CALCIUM 8.1 mg/dL (8.5-10.1); CHLORIDE SERUM 105 mmol/L (98-107); CREATININE SERUM 0.6 mg/dL (0.6-1.0); GFR1 > 60 mL/min; GLUCOSE SERUM 84 mg/dL (74-106); MAGNESIUM 1.3 mg/dL (1.8-2.4); PHOSPHOROUS 4.1 mg/dL (2.5-4.9); POTASSIUM SERUM 3.9 mmol/L (3.5-5.1); SODIUM SERUM 141 mmol/L (136-145)
[2017-06-04 17:45] VITALS: BP 146/101
[2017-06-04 20:50] VITALS: BP 146/90
[2017-06-05] VITALS (7 sets, daily range): BP systolic 141–188; BP diastolic 93–122
[2017-06-06 06:06] VITALS: BP 152/97
[2017-06-06 06:38] LABS: BASOPHIL % 0.4 % (0-2); PLATELET COUNT 358 x10^3mcL (130-400)
[2017-06-06 07:03] LABS: RED CELL DISTRIBUTION WIDTH 22.4 % (11.5-14.5)
[2017-06-06 07:06] LABS: CALCIUM 8.4 mg/dL (8.5-10.1); CARBON DIOXIDE 30.3 mmol/L (21-32); CHLORIDE SERUM 104 mmol/L (98-107); CREATININE SERUM 0.6 mg/dL (0.6-1.0); GFR1 > 60 mL/min; GLUCOSE SERUM 86 mg/dL (74-106); MAGNESIUM 1.5 mg/dL (1.8-2.4); PHOSPHOROUS 4.2 mg/dL (2.5-4.9); POTASSIUM SERUM 3.9 mmol/L (3.5-5.1); SODIUM SERUM 139 mmol/L (136-145)
[2017-06-06 09:03] VITALS: BP 172/112
[2017-06-06 17:12] VITALS: BP 152/95
[2017-06-06 21:43] VITALS: BP 170/100
[2017-06-07 00:18] VITALS: BP 164/117
[2017-06-07 05:19] VITALS: BP 164/104
[2017-06-07 06:26] LABS: BASOPHIL % 0.6 % (0-2); PLATELET COUNT 332 x10^3mcL (130-400)
[2017-06-07 06:40] LABS: CALCIUM 8.4 mg/dL (8.5-10.1); CARBON DIOXIDE 29.8 mmol/L (21-32); CHLORIDE SERUM 103 mmol/L (98-107); CREATININE SERUM 0.6 mg/dL (0.6-1.0); GFR1 > 60 mL/min; GLUCOSE SERUM 72 mg/dL (74-106); MAGNESIUM 1.7 mg/dL (1.8-2.4); PHOSPHOROUS 4.4 mg/dL (2.5-4.9); POTASSIUM SERUM 3.9 mmol/L (3.5-5.1); RED CELL DISTRIBUTION WIDTH 22.6 % (11.5-14.5); SODIUM SERUM 138 mmol/L (136-145)
[2017-06-07 09:35] VITALS: BP 152/94
[2017-06-07 13:07] VITALS: BP 152/94
[2017-06-07 13:09] LABS: rbc morphology (normal/abnorm) ABNORMAL (NORMAL)
== END 2017-06-07 14:23 | disposition home or self-care (01) | DRG 720 ==
LOC: ED 16:30 → DU 19:48 → IC 19:48 → DU 21:56 → IC 05-22 01:50 → DU 05-24 16:41 → MU 05-27 10:59
PROVIDERS: Emergency Medicine; Family Medicine; Family Medicine Sports Medicine; Internal Medicine Infectious Disease
PROC: 5A1945Z Respiratory Ventilation, 24-96 Consecutive Hours (ICD-10-PCS; 2017-05-21)
PROC: 0BH17EZ Insertion of Endotracheal Airway into Trachea, Via Natural or Artificial Opening (ICD-10-PCS; 2017-05-21)
PROC: 30233N1 Transfusion of Nonautologous Red Blood Cells into Peripheral Vein, Percutaneous Approach (ICD-10-PCS; 2017-05-22)
PROC: 0JBP0ZZ Excision of Left Lower Leg Subcutaneous Tissue and Fascia, Open Approach (ICD-10-PCS; 2017-05-22)
PROC: 05HY33Z Insertion of Infusion Device into Upper Vein, Percutaneous Approach (ICD-10-PCS; principal; 2017-05-23)
PROC: B543ZZA Ultrasonography of Right Jugular Veins, Guidance (ICD-10-PCS; 2017-05-23)
DX: A41.9 Sepsis, unspecified organism (principal); J96.01 Acute respiratory failure with hypoxia; I21.A1 Myocardial infarction type 2; N17.0 Acute kidney failure with tubular necrosis; R65.21 Severe sepsis with septic shock; J69.0 Pneumonitis due to inhalation of food and vomit; M72.6 Necrotizing fasciitis; E83.42 Hypomagnesemia; I38 Endocarditis, valve unspecified; E43 Unspecified severe protein-calorie malnutrition; E66.01 Morbid (severe) obesity due to excess calories; I10 Essential (primary) hypertension; Z80.3 Family history of malignant neoplasm of breast; Z82.49 Family history of ischemic heart disease and other diseases of the circulatory system; L89.892 Pressure ulcer of other site, stage 2; Y95 Nosocomial condition; D64.9 Anemia, unspecified; D47.3 Essential (hemorrhagic) thrombocythemia; N39.0 Urinary tract infection, site not specified; I16.0 Hypertensive urgency; D68.4 Acquired coagulation factor deficiency; K70.30 Alcoholic cirrhosis of liver without ascites; R31.9 Hematuria, unspecified; J44.9 Chronic obstructive pulmonary disease, unspecified; L03.115 Cellulitis of right lower limb; L03.317 Cellulitis of buttock; L03.116 Cellulitis of left lower limb; F10.239 Alcohol dependence with withdrawal, unspecified; Y90.9 Presence of alcohol in blood, level not specified; E87.6 Hypokalemia; E83.39 Other disorders of phosphorus metabolism; Z68.39 Body mass index [BMI] 39.0-39.9, adult; Z91.14 Patient's other noncompliance with medication regimen
CPT/HCPCS: 36556; 36600; 83880; 84439; 92526-GN; 92610; 97110-GP; 97530-GP; A4628; C9113; G0480; J0330; J0360; J0692; J1200; J1450; J1642; J1644; J1885; J2060; J2250; J2270; J2405; J2543; J2704; J2916; J3010; J3370; J3475; J3480; J3490; J7030; J7040; J7050; J7120; J7620; P9016; Q0092; Q0163; Q9967